=== PATIENT | male | born 1950 | race Caucasian/White ===

== ENCOUNTER 2023-11-03 02:26 | Inpatient (IN) | payer BC, SELFPAY ==
[2023-11-02 21:01] VITALS: BP 128/81
[2023-11-02 21:05] VITALS: BP 128/81; BMI 34.8
[2023-11-02 21:51] LABS: % Basophils 0.6 % (0-2); % Eosinophils 0.5 % (0-6); % Immature Granulocytes 0.7 % (0-0.5); % Lymphocytes 6.5 % (20.5-51.1); % Monocytes 9.3 % (1.7-9.3); % Neutrophils 82.4 % (42.2-75.2); Absolute Basophils 0.1 10^3/uL (0-0.2); Absolute Eosinophils 0.1 10^3/uL (0-0.7); Absolute Immature Granulocytes 0.1 10^3/uL (0-0.05); Absolute Lymphocytes 0.8 10^3/uL (1.2-3.4); Absolute Monocytes 1.2 10^3/uL (0.1-0.6); Absolute Neutrophils 10.2 10^3/uL (1.4-6.5); Hematocrit 38.9 % (39.0-52.0); Hemoglobin 14.1 g/dL (13.0-18.0); Mean Corp Hgb Conc. 36.2 g/dL (33.0-37.0); Mean Corpuscular Hgb 29.3 pg (27.0-31.0); Mean Corpuscular Volume 80.7 fL (80.0-94.0); Mean Platelet Volume 11.7 fL (7.4-10.4); Nucleated Red Blood Cells % 0 % (-); Platelet Count 220 10^3/uL (130-400); Red Blood Cell Count 4.82 10^6/uL (4.70-6.10); White Blood Cell Count 12.4 10^3/uL (4.8-10.8)
[2023-11-02 21:53] LABS: Urine Albumin Trace (Neg - Trace); Urine Bilirubin Negative (Negative); Urine Character Clear (Clear); Urine Color Yellow; Urine Glucose 1+ (Negative); Urine Ketone Negative (Negative); Urine Leukocyte Trace (Negative); Urine Nitrite Positive (Negative); Urine Occult Blood 3+ (Negative); Urine Urobilinogen Negative (Neg - 1+)
[2023-11-02 22:04] LABS: COVID-19 Antigen Negative (Negative)
[2023-11-02 22:13] LABS: ALT (SGPT) 32 U/L (0-50); AST (SGOT) 25 U/L (17-59); Albumin 3.9 g/dl (3.5-5.0); Alkaline Phosphatase 70 U/L (38-126); Blood Urea Nitrogen 16 mg/dl (9-20); Calcium 10.2 mg/dl (8.4-10.2); Carbon Dioxide 24 mmol/L (22-30); Chloride 106 mmol/L (98-107); Estimated Creatinine Clearance 97 ml/min; Glucose 214 mg/dl (70-99); Potassium 4.1 mmol/L (3.5-5.1); Sodium 137 mmol/L (135-145); Total Bilirubin 0.7 mg/dl (0.2-1.3); Total Protein 6.8 g/dl (6.3-8.2); eGFR > 60.00
--- NOTE | 2023-11-02 22:17 | ED.GENMED ---
History of Present Illness
General
Chief Complaint: Weakness
Source: patient, spouse and family
Exam Limitations: none
Time Seen by Provider: 11/02/23 21:03
Nursing documentation reviewed up to this point in time: agreed with
History of Present Illness
History of Present Illness:
72-year-old male diabetic recently started on insulin kidney stones, presents with fatigue trouble getting off, noted to be febrile here has had a cough and URI has had some back pain unsure if he had urinary frequency son's been sick with a similar
less severe illness
Past History
Past History
ED Past Medical History: Cancer (Prostate), NIDDM and Other (Multiple kidney stones, prostate cancer with radiation therapy; last radiation 2007, glaucoma, obstructive sleep apnea)
ED Past Surgical History: Urological (Prostatectomy)
Social History
Tobacco: Non-smoker
Alcohol: None
Drug: None
Personal:
Living: with family
Employment: Employed
Family History
Family History: Hypertension
Review of Systems
Review of Systems
All Other Systems: Not applicable
Constitutional: Reports fever and fatigue
EENT: Reports no symptoms
Respiratory: Reports cough and trouble breathing
Cardiac: Reports no symptoms
ABD/GI: Reports nausea
: Reports flank pain
Musculoskeletal: Reports muscle pain and muscle stiffness
Neurological: Reports weakness
Phy Exam
Physical Exam
Physical Exam:
Physical Exam
General: Moderately ill-appearing
Neck: Dry lips
Heart: s1/s2 regular rate and rhythm, no murmur. equal radial pulses.
Lungs: Rhonchi at the base
Abdomen: Nontender
Neuro: alert and oriented. no focal neurological deficits
Skin: no rash
Psychiatric: cooperative
Extremities: Well-healed surgical scar on the left
Course
Orders/Labs/Results
Orders:
Orders
11/02/23 21:02
Electrocardiogram (*1) Urgent
Reason for Study: Fatigue / Weakness
11/02/23 21:04
EKG- Treatment ONCE
11/02/23 21:17
CMP [Comprehensive Metabolic Panel] Urgent
Complete Blood Count/With Diff Urgent
11/02/23 21:41
COVID-19 Antigen Urgent
Source: Nasal Swab
Urinalysis Reflex To Culture Urgent
Date Specimen was Collected: 11/02/23
Time Specimen was Collected: 21:40
Urine Microscopic Reflex Cult Urgent
Urine Culture Urgent
DANIEL Source: U
Specimen Description:
Date Specimen was Collected: 11/02/23
Time Specimen was Collected: 21:40
11/02/23 22:16
CT Abd/pel Without Iv Or Oral Urgent
Comment:
Reason For Exam: uti fever stones
0.9% Sodium Chloride 1000 ml [Nss] 1,000 ml IV BOLUS
Acetaminophen [Tylenol] 650 mg PO NOW STA
CR Chest - 2 Views Urgent
Comment:
Reason For Exam: fever
11/02/23 23:29
Blood Culture Urgent
DANIEL Source: Blood/Venous
Specimen Description:
CefTRIAXone [Rocephin] 1,000 mg IV NOW STA
11/02/23 23:46
Ibuprofen [Motrin] 600 mg PO NOW STA
Abnormal Lab Results
11/02/23 11/02/23
21:17 21:41
WBC 12.4 H 10^3/uL
(4.8-10.8)
Hct 38.9 L %
(39.0-52.0)
MPV 11.7 H fL
(7.4-10.4)
Abs Immat Gran (auto) 0.1 H 10^3/uL
(0-0.05)
Absolute Neuts (auto) 10.2 H 10^3/uL
(1.4-6.5)
Absolute Lymphs (auto) 0.8 L 10^3/uL
(1.2-3.4)
Absolute Monos (auto) 1.2 H 10^3/uL
(0.1-0.6)
Immature Gran % 0.7 H %
(0-0.5)
Neutrophils % 82.4 H %
(42.2-75.2)
Lymphocytes % 6.5 L %
(20.5-51.1)
Glucose 214 H mg/dl
(70-99)
Ur Occult Blood Reflex 3+ A
(Negative)
Urine Nitrite (Reflex) Positive A
(Negative)
Leukocyte Esterase Rfl Trace A
(Negative)
Urine RBC 7-10 A /HPF
(0-2)
Urine Glucose 1+ A
(Negative)
11/02/23 21:17
11/02/23 21:17
Vital Signs
Initial and Last Documented VS:
Initial Vital Signs
BP
128/81
11/02/23 21:01
Last Documented Vital Signs
Temp Pulse Resp BP Pulse Ox
100.9 F H 90 20 128/81 93
11/02/23 23:37 11/02/23 22:45 11/02/23 22:45 11/02/23 21:05 11/02/23 22:45
MDM/Problems Addressed
Differential Diagnosis Includes:
Viral syndrome COVID pneumonia UTI sepsis ureteral stone
MDM/Problems Addressed:
Fever fatigue
Acute Exacerbation and/or Progression of Chronic Illness: DM
*Radiology
Radiology exam reviewed: preliminary read by ED provider
*Pulse Oximetry
Patient hypoxic: no
*Sales And Marketing Manager Interpretation
Rate: normal
Interpretation: normal
Heart Rate: 100
Rhythm: sinus
*Critical Care Note
Total Time (30-74mins, 75-104mins- exclusive of procedures): 15
Update Note
Update Note:
update
labs noted
ua noted
Uc pending
BC ordered
cxr noted
CT report noted
fever trending up
will admit
concern for bacteremia
ED Attending Note
-
Portions of this chart may have been created with voice recognition software.� Occasional wrong word or��sound alike� substitutions may have occurred due to the inherent limitations of voice recognition software.
Discharge Plan
Departure
Patient Disposition: Admit
Date of Disposition: 11/02/23
Time of Disposition: 23:56
Admit to: Telemetry
Presentation/result/management discussed w/ accepting MD/DO: Hospitalist
Patient with high blood pressure during this ER visit?: No
Condition: Fair
Covid-19: Negative COVID-19
Discharge Problem:
Sepsis
Prescriptions:
No Action
tamsulosin [Flomax] 0.4 MG capsule
0.4 mg PO HS Qty: 7 0RF
levofloxacin 250 MG tablet
250 mg PO DAILY Qty: 6 0RF
glyburide 2.5 MG tablet
2.5 mg PO BID@0800,1700 0RF
hydrocodone-acetaminophen [Vicodin] 1 EACH tablet
1 ea PO Q8HPRN PRN (Reason: pain) Qty: 20 0RF
hydrocodone-acetaminophen 1 TABLET tablet
1 tab PO Q4HPRN PRN (Reason: pain) Qty: 10 0RF
sulfamethoxazole-trimethoprim [Bactrim DS] 800-160 mg tablet
1 tab PO BID 5 Days Qty: 10 0RF
Referrals:
UNKNOWN - PT DOES,NOT KNOW [Family Provider] -
Interventions
Interventions:
*Risk Screen - Suicide Last Done: 11/02/23 21:05
*General Assessment Last Done: 11/02/23 21:05
*Neglect/Abuse Screening Last Done: 11/02/23 21:05
ED- Fall Risk Assessment Last Done: 11/02/23 21:05
*ED COVID-19 Vaccine History Last Done: 11/02/23 21:05
ED- Cardiac Assessment Last Done: 11/02/23 21:52
ED- Neurological Assessment Last Done: 11/02/23 21:52
ED- Pulmonary Assessment Last Done: 11/02/23 21:52
Discharge Date and Time
Print Language: VIETNAMESE
[2023-11-02] MEDS: TYLENOL 650 MG PO (22:19)
[2023-11-02] MEDS: NSS 1000 IV (22:21)
[2023-11-02 23:28] VITALS: BP 122/77
[2023-11-02] MEDS: MOTRIN 600 MG PO (23:53)
[2023-11-03] VITALS (9 sets, daily range): BP systolic 102–146; BP diastolic 54–83; PULSE 79; O2SAT 93; BMI 34.4
[2023-11-03] MEDS: ROCEPHIN 1000 MG IV ×2 (00:05→21:51)
--- NOTE | 2023-11-03 02:09 | HPS.HSE ---
Family Physician
-
Family Physician: NOT KNOW UNKNOWN - PT DOES
Chief Complaint
-
Weakness/Fall, Coughing x 3 weeks
History of Present Illness
72yo M with PMH NAEEM (not treated), DM on insulin, Prostate Ca s/p Prostatectomy/Radiation (2007), Nephrolithiasis, Right Hip OA, Left Hip DJD s/p TKR (~1yr ago), Glaucoma, Anxiety presents to ER wtih complaint of weakness s/p fall. Pt states today
he was at home on his chair. ATtempted to get up and go to the bathroom but was so weak he lowered himself to the ground. Denies any traumatic injuries or LOC. Reports productive cough x 3 weeks. Does not require oxygen at home or use cpap for NAEEM.
Denies dysuria, but does endorse chronic incontinence for which he uses diapers. Denies any history of left knee infections or recent abx. Denies fever (despite being febrile in ER), dizziness/LH, pre-syncope, CP, palps, wheezing, abd pain, n/v/d/c,
dysuria, calf or leg pain.
ER course: Pt presents Tmax 100.4, HR 101, RR 18-31, Sat 93% RA. COVID (-). CXR with possible LLL pneumonia. WBC 12.4K. BUN/Cr 16/0.8, BG 214. S/P 1gm IV rocephin, Tylenol 650mg, Motrin 600mg PO, and 1LNS in ER. Azithromycin added.
Medical History
Past Medical History
Past Medical History: Reports Other
Additional Past Medical History:
NAEEM (not treated), DM on insulin, Prostate Ca s/p Prostatectomy/Radiation (2007), Nephrolithiasis, Right Hip OA, Left Hip DJD s/p TKR (~1yr ago), Glaucoma, Anxiety
Past Surgical History: Reports Other
Additional Past Surgical History:
Right TKR, Prostatectomy
Social History
Tobacco: Non-smoker
Alcohol: None
Drug: None
Personal:
Living: With Family
Family History
Family History: Hypertension
Allergies / Home Medications
Allergies reflects when Allergies were last updated in [facility].
Home Medications with original date entered in [facility]
Allergy/Medication List:
Allergies
Allergy/AdvReac Type Severity Reaction Status Date / Time
No Known Allergies Allergy Verified 11/02/23 21:05
Home Medications
Novolog U-100 Insulin aspart 10 units SC TIDWMEAL 11/03/23
insulin degludec 100 unit/mL (3 mL) subcutaneous pen (Tresiba FlexTouch U-100 insulin) 55 unit SC HS 11/03/23
Review of Systems
-
A 12 point ROS was completed and negative except as noted: Yes
Physical Exam
Vital Signs
Vital Signs
Temp Pulse Resp BP Pulse Ox
99.8 F 85 20 139/83 95
11/03/23 01:34 11/03/23 01:30 11/03/23 01:30 11/03/23 00:09 11/03/23 00:45
Physical Exam
General: Well Developed, Well Nourished and No Apparent Distress
HEENT: NormoCephalic, Moist mucous membranes and Atraumatic
Respiratory: Other (Coaresness left base. no w/r/r. )
Cardiac: S1/S2 and Regular Rhythm; No Murmur or Rub
GI: Soft, Non Tender, Non Distended, Normal Bowel Sounds and Other (obese. ); No Organomegaly
Rectal: Deferred by Provider
Genito-urinary: No No costovertebral tender or Vázquez
Musculoskeletal: No Clubbing, No Cyanosis, No Edema and Other (MSK 4/5 throughout. )
Skin: No Rash
Neuro: Awake, Alert, Oriented, AO x 3 and Nonfocal/grossly intact
Psych: Calm
Laboratory Results
-
11/02/23 21:17
11/02/23 21:17
Laboratory Results
Total Bilirubin 0.7 mg/dl (0.2-1.3) 11/02/23 21:17
AST 25 U/L (17-59) 11/02/23 21:17
ALT 32 U/L (0-50) 11/02/23 21:17
Alkaline Phosphatase 70 U/L (38-126) 11/02/23 21:17
Data Reviewed
-
Diagnostic Radiology: Image Personally Visualized and interpreted
Lab Data: Labs Reviewed by me
Old Records: Reviewed
Impression/Plan
-
Sepsis 2/2 PNA
- +4/4 SIRS (tachycardia, Tachypnea, Tmax 100.4, WBC 12.4K). LA ordered and pending
- S/P 1L NS Bolus in ER. Continue NS per sepsis protocol
- UA without concern for infection
- BC x 2 ordered. Follow up Sputum Culture
- CXR with possible LLL pneumonia, follow official read. Pt endorses 3 weeks of cough with productive mucous
- COVID (-)
- Continue rocephin/azithromycin
- Continue mucinex and IS with prn albuterol nebs
Hyperglycemia/DM2
- BG 214 on admission. Check A1C
- Continue home tresiba and novolog bolus regimen. SSI/accuchecks.
- Hypoglycemia protocol.
Hx Urinary Incontinence
- Pt reports no longer being on flomax
- UA without evidence of infection.
NAEEM - Intolerant to cpap.
Anxiety / Meds need reconciliation - Pt was able to confirm insulin does but does not know the rest of his meds. Believes an anxiety med is the last one. Will need confirmation with in AM.
Diet: Diabetic Diet
DVT Ppx: Lovenox
Code Status: Full Code
[2023-11-03] MEDS: NSS 1000 IV ×2 (04:15→15:25)
[2023-11-03] MEDS: ZITHROMAX INFUSION 250 IV (04:16)
--- NOTE | 2023-11-03 04:35 | PTCARENOTE ---
Patient received from ED via stretcher. Patient pulled over onto the bed. Received on 2L O2 NC. AAOx3, VSS. Temp of 99.5 orally, O2 sat 97% on 2L NC. Patient oriented to the room. Educated on prescribed medications. Call pickett is within reach.
[2023-11-03 05:56] LABS: % Basophils 0.6 % (0-2); % Eosinophils 0.6 % (0-6); % Immature Granulocytes 0.7 % (0-0.5); % Monocytes 5.9 % (1.7-9.3); % Neutrophils 83.2 % (42.2-75.2); Absolute Basophils 0.1 10^3/uL (0-0.2); Absolute Eosinophils 0.1 10^3/uL (0-0.7); Absolute Immature Granulocytes 0.1 10^3/uL (0-0.05); Absolute Lymphocytes 0.8 10^3/uL (1.2-3.4); Absolute Monocytes 0.5 10^3/uL (0.1-0.6); Absolute Neutrophils 7.3 10^3/uL (1.4-6.5); Hematocrit 37.3 % (39.0-52.0); Mean Corp Hgb Conc. 34.9 g/dL (33.0-37.0); Mean Corpuscular Hgb 29.7 pg (27.0-31.0); Mean Corpuscular Volume 85.2 fL (80.0-94.0); Mean Platelet Volume 11.2 fL (7.4-10.4); Nucleated Red Blood Cells % 0 % (-); Platelet Count 176 10^3/uL (130-400); Red Blood Cell Count 4.38 10^6/uL (4.70-6.10); Red Cell Dist. Width 13.1 % (11.5-14.5); White Blood Cell Count 8.8 10^3/uL (4.8-10.8)
[2023-11-03 06:10] LABS: Lactic Acid 1.6 mmol/L (0.7-2.0)
[2023-11-03 06:18] LABS: Blood Urea Nitrogen 13 mg/dl (9-20); Calcium 9.6 mg/dl (8.4-10.2); Carbon Dioxide 25 mmol/L (22-30); Chloride 108 mmol/L (98-107); Estimated Creatinine Clearance 97 ml/min; Glucose 159 mg/dl (70-99); Potassium 3.6 mmol/L (3.5-5.1); Sodium 139 mmol/L (135-145); eGFR > 60.00
[2023-11-03 08:23] LABS: Glucose - Point of Care 172 mg/dl (70-99)
[2023-11-03] MEDS: MUCINEX 600 MG PO ×2 (09:20→20:08)
[2023-11-03] MEDS: NOVOLOG FLEXPEN-LOW RESISTANCE 1 UNITS SC ×3 (09:23→17:04)
[2023-11-03] MEDS: TYLENOL 650 MG PO ×3 (09:28→21:58)
--- NOTE | 2023-11-03 09:31 | PTCARENOTE ---
Patient with chills. Temperature at this time 101.0 orally. Given tylenol.
[2023-11-03] MEDS: NovoLIN R Flexpen 10 UNITS SC ×3 (09:39→16:59)
--- NOTE | 2023-11-03 10:36 | W.PN.HOSP.TC ---
Today's Communication/Plan
-
rocephin/zithromax/nebs
supportive care
Assessment / Plan
Assessment / Plan
pt is a 72 year old male
Sepsis (POA) likely due to LLL PNA--cont IVF--cont rocephin/oral zithromax--await cultures- COVID (-) - Continue mucinex and IS with prn albuterol nebs
Type 2 DM with - BG 214 on admission. Check A1C- Continue home tresiba and novolog bolus regimen. SSI/accuchecks- Hypoglycemia protocol.
Hx Urinary Incontinence- Pt reports no longer being on flomax- UA without evidence of infection.
NAEEM - Intolerant to cpap.
Anxiety/Meds need reconciliation - Pt was able to confirm insulin does but does not know the rest of his meds. Believes an anxiety med is the last one. Will need confirmation with in AM.
DVT Ppx: Lovenox
Code Status: Full Code
Anticipated Discharge: > 48 hours
Subjective/Interval History
-
Date of Service: November 03, 2023
pt c/o chills and now with fever
Objective Data
-
Labs:
Laboratory Results
11/03/23
05:18
WBC 8.8
Hgb 13.0
Hct 37.3 L
Plt Count 176
Sodium 139
Potassium 3.6
Chloride 108 H
Carbon Dioxide 25
BUN 13
Creatinine 0.8
Glucose 159 H
Calcium 9.6
Vital Signs:
11/03/23
10:36
Temp 102
Vital Signs
Temp Pulse Resp BP Pulse Ox
101 F H 87 20 146/75 94
11/03/23 09:29 11/03/23 08:13 11/03/23 08:13 11/03/23 08:13 11/03/23 08:13
I&O
11/02/23 11/03/23 11/04/23
06:59 06:59 06:59
Intake Total 390 / 390
Balance 390 / 390
Review of Systems
-
All other systems: Reviewed and negative
Physical Exam
-
General: Well Developed, Well Nourished and No Apparent Distress
HEENT: Normocephalic and Atraumatic
Respiratory: Clear to Auscultation; Negative Wheezes or Rhonchi
Cardiac: Regular Rhythm and S1/S2; Negative Murmur
GI: Soft, Nontender, Nondistended and Normal Bowel Sounds
Musculoskeletal: No Clubbing, No Cyanosis and No Edema
Skin: Warm
Neuro: Awake and Alert
Psych: Calm
[2023-11-03] MEDS: MOTRIN 400 MG PO ×2 (10:47→16:32)
--- NOTE | 2023-11-03 11:22 | PTCARENOTE ---
Patient's temp 102 an hour after Tylenol. MD notified. Motrin given and ice packs provided under arms and to the back of neck.
[2023-11-03 12:14] LABS: Glucose - Point of Care 164 mg/dl (70-99)
--- NOTE | 2023-11-03 12:14 | PTCARENOTE ---
Braider Setter made aware of platelet count of 9,000 as well.
--- NOTE | 2023-11-03 12:20 | PTCARENOTE ---
Preliminary Blood Cultures - gram negative bacilli in anaeribic bottles - Hospitalist notified.
[2023-11-03 15:41] LABS: Glycohemoglobin (HgbA1c) 11.5 % (4.0-5.6)
[2023-11-03 16:43] LABS: Glucose - Point of Care 179 mg/dl (70-99)
[2023-11-03] MEDS: LOVENOX 40 MG SC (17:04)
[2023-11-03] MEDS: LEXAPRO 10 MG PO (20:08)
[2023-11-03 21:08] LABS: Glucose - Point of Care 195 mg/dl (70-99)
[2023-11-03] MEDS: LANTUS 0.55 UNITS SC (21:51)
[2023-11-03] MEDS: MELATONIN 5 MG PO (21:51)
[2023-11-03] MEDS: STERILE WATER FOR INJECTION 10 ML IV (21:51)
[2023-11-03 23:03] LABS: Glucose - Point of Care 171 mg/dl (70-99)
[2023-11-04 03:05] VITALS: BP 158/79
[2023-11-04] MEDS: TYLENOL 650 MG PO ×4 (03:12→19:42)
[2023-11-04] MEDS: NSS 1000 IV (04:04)
[2023-11-04 07:18] LABS: Glucose - Point of Care 122 mg/dl (70-99)
[2023-11-04 07:30] VITALS: BP 132/69
[2023-11-04] MEDS: MUCINEX 600 MG PO ×2 (08:15→19:42)
[2023-11-04] MEDS: ZITHROMAX 500 MG PO (08:15)
[2023-11-04] MEDS: NOVOLOG FLEXPEN-LOW RESISTANCE SC (08:24)
[2023-11-04] MEDS: NovoLIN R Flexpen 10 UNITS SC ×3 (08:26→17:21)
[2023-11-04 09:06] LABS: Hematocrit 35.8 % (39.0-52.0); Hemoglobin 12.5 g/dL (13.0-18.0); Mean Corp Hgb Conc. 34.9 g/dL (33.0-37.0); Mean Corpuscular Hgb 29.3 pg (27.0-31.0); Mean Platelet Volume 12.2 fL (7.4-10.4); Platelet Count 154 10^3/uL (130-400); Red Blood Cell Count 4.26 10^6/uL (4.70-6.10); White Blood Cell Count 7.5 10^3/uL (4.8-10.8)
[2023-11-04 09:11] LABS: ALT (SGPT) 35 U/L (0-50); AST (SGOT) 35 U/L (17-59); Albumin 3.1 g/dl (3.5-5.0); Alkaline Phosphatase 63 U/L (38-126); Blood Urea Nitrogen 12 mg/dl (9-20); Carbon Dioxide 21 mmol/L (22-30); Chloride 107 mmol/L (98-107); Estimated Creatinine Clearance > 125 ml/min; Glucose 133 mg/dl (70-99); Magnesium 1.7 mg/dl (1.6-2.3); Potassium 3.7 mmol/L (3.5-5.1); Sodium 134 mmol/L (135-145); Total Bilirubin 0.7 mg/dl (0.2-1.3); Total Protein 5.8 g/dl (6.3-8.2); eGFR > 60.00
--- NOTE | 2023-11-04 09:37 | W.PN.HOSP.TC ---
Addendum entered and electronically signed by Pastora Ha MD 11/04/23 09:54:
HGB A1C is 11.5--will consult DM SIMRAN in AM for assistance
Original Note:
Today's Communication/Plan
-
repeat CXR
cont abx
follow cultures
Assessment / Plan
Assessment / Plan
pt is a 72 year old male
Sepsis (POA)--due to LLL PNA vs UTI--blood culture positive for Klebsiella pneumonia--cont IVF--cont rocephin/oral zithromax--await urine cultures, repeat blood culture pending--- COVID (-) - Continue mucinex and IS with prn albuterol nebs--recheck
2 view CXR today
Type 2 DM with - BG 214 on admission. Check A1C- Continue home tresiba and novolog bolus regimen. SSI/accuchecks
Hx Urinary Incontinence- Pt reports no longer being on flomax--await urine culture
NAEEM - Intolerant to cpap.
Anxiety-- cont lexapro
DVT Ppx: Lovenox
Code Status: Full Code
Anticipated Discharge: > 48 hours
Subjective/Interval History
-
Date of Service: November 04, 2023
pt feeling a bit better
Objective Data
-
Labs:
Laboratory Results
11/04/23
05:36
WBC 7.5
Hgb 12.5 L
Hct 35.8 L
Plt Count 154
Sodium 134 L
Potassium 3.7
Chloride 107
Carbon Dioxide 21 L
BUN 12
Creatinine 0.6 L
Glucose 133 H
Calcium 9.0
Total Bilirubin 0.7
AST 35
ALT 35
Alkaline Phosphatase 63
Vital Signs:
max temp for 24 hours
11/03/23
10:36
Temp 102 F H
Vital Signs
Temp Pulse Resp BP Pulse Ox
100.4 F H 93 20 132/69 91
11/04/23 07:30 11/04/23 07:30 11/04/23 07:30 11/04/23 07:30 11/04/23 07:30
I&O
11/03/23 11/04/23 11/05/23
06:59 06:59 06:59
Intake Total 390 / 390 3000 / 3000
Output Total 430 / 430
Balance 390 / 390 2570 / 2570
Review of Systems
-
All other systems: Reviewed and negative
Physical Exam
-
General: Well Developed, Well Nourished and No Apparent Distress
HEENT: Normocephalic and Atraumatic
Respiratory: Clear to Auscultation; Negative Wheezes or Rhonchi
Cardiac: Regular Rhythm and S1/S2; Negative Murmur
GI: Soft, Nontender, Nondistended and Normal Bowel Sounds
Musculoskeletal: No Clubbing, No Cyanosis and No Edema
Neuro: Awake and Alert
Psych: Calm
[2023-11-04 11:24] VITALS: BP 123/72
[2023-11-04 11:52] LABS: Glucose - Point of Care 192 mg/dl (70-99)
[2023-11-04] MEDS: NOVOLOG FLEXPEN-LOW RESISTANCE 1 UNITS SC ×2 (12:38→17:21)
[2023-11-04 15:30] VITALS: BP 142/78
[2023-11-04 16:39] LABS: Glucose - Point of Care 170 mg/dl (70-99)
[2023-11-04] MEDS: LOVENOX 40 MG SC (17:43)
[2023-11-04 19:33] VITALS: BP 128/61
[2023-11-04 21:16] LABS: Glucose - Point of Care 199 mg/dl (70-99)
[2023-11-04] MEDS: MELATONIN 5 MG PO (22:12)
[2023-11-04] MEDS: LEXAPRO 10 MG PO (22:13)
[2023-11-04] MEDS: LANTUS 0.55 UNITS SC (22:13)
[2023-11-04] MEDS: STERILE WATER FOR INJECTION 10 ML IV (22:13)
[2023-11-04] MEDS: ROCEPHIN 1000 MG IV (22:13)
[2023-11-04 23:27] VITALS: BP 118/59
[2023-11-05] VITALS (7 sets, daily range): BP systolic 112–136; BP diastolic 59–78; PULSE 78
[2023-11-05 07:27] LABS: Hematocrit 35.2 % (39.0-52.0); Hemoglobin 12.6 g/dL (13.0-18.0); Mean Corp Hgb Conc. 35.8 g/dL (33.0-37.0); Mean Corpuscular Hgb 29.2 pg (27.0-31.0); Mean Corpuscular Volume 81.7 fL (80.0-94.0); Mean Platelet Volume 11.6 fL (7.4-10.4); Platelet Count 168 10^3/uL (130-400); Red Blood Cell Count 4.31 10^6/uL (4.70-6.10); Red Cell Dist. Width 12.9 % (11.5-14.5); White Blood Cell Count 5.8 10^3/uL (4.8-10.8)
[2023-11-05 07:52] LABS: Glucose - Point of Care 108 mg/dl (70-99)
[2023-11-05 07:53] LABS: NT-proBNP 576 pg/ml
[2023-11-05] MEDS: NOVOLOG FLEXPEN-LOW RESISTANCE SC ×2 (07:55→11:44)
[2023-11-05] MEDS: ZITHROMAX 500 MG PO (08:03)
[2023-11-05] MEDS: MUCINEX 600 MG PO ×2 (08:03→19:58)
[2023-11-05 08:05] LABS: Blood Urea Nitrogen 13 mg/dl (9-20); Calcium 9.4 mg/dl (8.4-10.2); Carbon Dioxide 26 mmol/L (22-30); Chloride 106 mmol/L (98-107); Estimated Creatinine Clearance > 125 ml/min; Glucose 115 mg/dl (70-99); Magnesium 1.9 mg/dl (1.6-2.3); Potassium 3.7 mmol/L (3.5-5.1); Sodium 138 mmol/L (135-145); eGFR > 60.00
[2023-11-05] MEDS: NovoLIN R Flexpen 10 UNITS SC (08:29)
--- NOTE | 2023-11-05 08:42 | PN.DE.MGMTRT ---
Insulin Management
- -
11/05/2023: Diabetes Management Consult
72 year old male with PMH: NAEEM, Prostate Ca s/p Prostatectomy/Radiation (2007), Nephrolithiasis, Right Hip OA, Left Hip DJD s/p TKR (~1yr ago), Glaucoma, urinary incontinence, Anxiety and T2DM, presented to the ED on 11/01 with c/o weakness and fall.
Noted for Sepsis due bacteremia, LLL PNA and UTI.
Glucose on admission was 214, A1C 11.5%, Cr 0.6, eGFR>60. Was taking Tresiba 55 units @ HS and NovoLog 10 units AC.
He was started on Lantus 55 units @ HS and Regular insulin [address] Martinez on admission and has remained on the same regimen throughout the weekend.
Pt awake, A/O x3, sitting up in chair, offers no complaints, able to discuss diabetes mgt. States he has an upcoming 1st time visit with Endocrine- Dr. Augustin next month. He reports trying several oral meds like Metformin but he did not tolerate
them.
Reports that his takes care of all his diabetes needs, attempted to call pt's at cell number listed in chart and was unable to reach her.
11/03 premeal glucose range 122 to 192, was 199 @ HS, fasting 115 (V), 108 POC this AM.
Will STOP SQ Regular insulin. Start NovoLog 8 units AC. Cont Lantus 55 units @ HS with low corrective insulin
Will closely monitor glucose and further adjust insulin if necessary.
Pt reports he has a glucose monitor but does not monitor often. Encouraged pt to get script for CGM and discuss GLP-1 with endo at this 1st visit
Will attempt calling the again tomorrow.
Diabetes History
- -
Type of Diabetes: 2 requiring insulin
Pre-Admission Diabetes Regimen
11/04/23 11/05/23
05:36 06:50
Creatinine 0.6 L 0.6 L
Lab Results
Hemoglobin A1c Cancelled 11/03/23 06:00
Insulin Pump Settings
IP Diabetes Regimen
11/04/23 11/04/23 11/04/23
05:36 11:50 16:35
Glucose 133 H
POC Glucose 192 H 170 H
11/04/23 11/05/23 11/05/23
21:15 06:50 07:51
Glucose 115 H
POC Glucose 199 H 108 H
Patient Education
--- NOTE | 2023-11-05 10:15 | W.PN.HOSP.TC ---
Addendum entered and electronically signed by Deepak Vora MD 11/05/23 20:08:
I saw and evaluated the patient. I reviewed the resident�s note and agree with findings and plan as documented in the resident�s note.
Original Note:
Documented by User: Edie Nunez MD, Resident 11/05/23 15:53
Today's Communication/Plan
-
Blood and urine cultures (+) for klebsiella. Continue patient on Rocephin.
Assessment / Plan
Assessment / Plan
pt is a 72 year old male
Sepsis (POA)--due to LLL PNA vs UTI--blood and urine culture positive for Klebsiella pneumonia--cont IVF--cont rocephin- repeat blood culture pending--- COVID (-) - Continue mucinex and IS with prn albuterol nebs-- Repeat chest x-ray unchanged.
likely atelectasis per radiology -- Cultures with klebsiella makes urinary source more likely
Type 2 DM with - BG 214 on admission -- HgA1C 11.5 -- Diabetic SWITCHBOARD WIRE WORKER HELPER consulted and spoke to patient - Novolog 8 units AC, continue lantus 55 units per Diabetic nurse -- SSI/accuchecks -- Pt educated on diabetes and relation to UTIs
Hx Urinary Incontinence- Pt reports no longer being on flomax--urine culture (+) klebsiella. Continue on IV rocephin.
NAEEM - Intolerant to cpap.
Anxiety-- cont lexapro
DVT Ppx: Lovenox
Code Status: Full Code
Anticipated Discharge: 24 - 48 hours
Subjective/Interval History
-
Date of Service: November 05, 2023
Objective Data
-
Labs:
Laboratory Results
11/05/23
06:50
WBC 5.8
Hgb 12.6 L
Hct 35.2 L
Plt Count 168
Sodium 138
Potassium 3.7
Chloride 106
Carbon Dioxide 26
BUN 13
Creatinine 0.6 L
Glucose 115 H
Calcium 9.4
Vital Signs:
Vital Signs
Temp Pulse Resp BP Pulse Ox
99.8 F 79 20 136/68 94
11/05/23 07:25 11/05/23 07:25 11/05/23 07:25 11/05/23 07:25 11/05/23 08:00
I&O
11/04/23 11/05/23 11/06/23
06:59 06:59 06:59
Intake Total 3000 / 3000 840 / 840
Output Total 430 / 430 575 / 575
Balance 2570 / 2570 265 / 265
Review of Systems
-
History Source: Patient
EENT: Reports No Symptoms Reported
Respiratory: Reports Cough
Cardiac: Reports No Symptoms
Abdomen/GI: Reports No Symptoms
Genitourinary: Reports No Symptoms
Neuro: Reports No Symptoms
Physical Exam
-
General: Well Developed, Well Nourished and No Apparent Distress
Respiratory: Crackles
Cardiac: Regular Rhythm and S1/S2
GI: Soft, Nontender and Nondistended
Musculoskeletal: No Edema
Neuro: AO x 3
Psych: Calm

Documented by User: Deepak Vora MD 11/05/23 20:07
Assessment / Plan
Assessment / Plan
pt is a 72 year old male
Sepsis (POA) with kleb pneumoniae bacteremia- suspected source ----blood and urine culture positive for Klebsiella pneumoniae--cont IVF--cont rocephin- repeat blood culture pending--- COVID (-) - Continue mucinex and IS with prn albuterol nebs--
Repeat chest x-ray unchanged. likely atelectasis per radiology -- Cultures with klebsiella makes urinary source more likely
CT imagin of A/P no renal stones or obstructive uropathy.
Pt has hx of urinary incontinence since post prostrate sx - check bladder scans for any overflow incontinence.
Type 2 DM with - BG 214 on admission -- HgA1C 11.5 -- Diabetic SWITCHBOARD WIRE WORKER HELPER consulted and spoke to patient - Novolog 8 units AC, continue lantus 55 units per Diabetic nurse -- SSI/accuchecks -- Pt educated on diabetes and relation to UTIs
Hx Urinary Incontinence- Pt reports no longer being on flomax--urine culture (+) klebsiella. Continue on IV rocephin.
NAEEM - Intolerant to cpap.
Anxiety-- cont lexapro
DVT Ppx: Lovenox
Code Status: Full Code
Total time of care 52 min
--- NOTE | 2023-11-05 10:18 | CM ---
Cm met with pt bedside
He resides with his spouse in a [place] with 6+5 CARLOS through front, 13 through rear
Pt notes he is typically independent with his ADLs with use a SPC, he wears adult diapers
Pt has a WW for use if needed
Spouse works customer business manager at [employer]
Pt notes his BGM at home is in working condition and he gets his DM supplies through [facility]
PCP- Becky Moscoso
Rx- [facility]
PT/OT following with [facility] recommendations
Referral made to [facility] per pt request
Discharge Disposition- home with [facility]
--- NOTE | 2023-11-05 10:49 | VNURNOTE ---
Attempted to meet with patient to discuss [facility] services. He was sound asleep. Will try later.
[2023-11-05 11:42] LABS: Glucose - Point of Care 115 mg/dl (70-99)
--- NOTE | 2023-11-05 12:07 | VNURNOTE ---
Home Health Liaison met with patient at bedside to discuss [facility] nurse/therapy, visits, schedule and homebound status. Patient is agreeable and understands that visits at home will be 1-3x per week to assess and teach medical management. [facility]
brochure provided with contact information. Patient is aware that [facility] will contact them for start of care within a few days after discharge from . [facility] referral completed in [facility].
[2023-11-05] MEDS: NOVOLOG FLEXPEN 8 UNITS SC ×2 (12:41→17:09)
[2023-11-05 16:44] LABS: Glucose - Point of Care 205 mg/dl (70-99)
[2023-11-05] MEDS: NOVOLOG FLEXPEN-LOW RESISTANCE 2 UNITS SC (17:09)
[2023-11-05] MEDS: LOVENOX 40 MG SC (17:10)
[2023-11-05] MEDS: LEXAPRO 10 MG PO (20:31)
[2023-11-05 21:16] LABS: Glucose - Point of Care 127 mg/dl (70-99)
[2023-11-05] MEDS: LANTUS 0.55 UNITS SC (21:59)
[2023-11-05] MEDS: STERILE WATER FOR INJECTION 10 ML IV (22:00)
[2023-11-05] MEDS: MELATONIN 5 MG PO (22:00)
[2023-11-05] MEDS: ROCEPHIN 1000 MG IV (22:00)
[2023-11-06 03:32] VITALS: BP 116/66
[2023-11-06 07:58] LABS: Glucose - Point of Care 115 mg/dl (70-99)
[2023-11-06 08:00] VITALS: BP 125/82
--- NOTE | 2023-11-06 08:14 | W.PN.HOSP.TC ---
Today's Communication/Plan
-
Discharge on oral Augmentin.
Assessment / Plan
Assessment / Plan
pt is a 72 year old male
Sepsis (POA) with kleb pneumoniae bacteremia- suspected source ---blood and urine culture positive for Klebsiella pneumoniae--cont IVF--cont rocephin- repeat blood culture pending--- COVID (-) - Continue mucinex and IS with prn albuterol nebs--
Repeat chest x-ray unchanged. likely atelectasis per radiology -- Cultures with klebsiella makes urinary source more likely -- CT imaging of A/P no renal stones or obstructive uropathy -- Pt has hx of urinary incontinence since post prostrate sx -
bladder scan normal -- Klebsiella sensitive to augmentin. Discharge on PO augmentin
Type 2 DM with - BG 214 on admission -- HgA1C 11.5 -- Diabetic CORK TIPPER consulted and spoke to patient - Novolog 8 units AC, continue lantus 55 units per Diabetic nurse -- SSI/accuchecks -- Pt educated on diabetes and relation to UTIs
Hx Urinary Incontinence- Pt reports no longer being on flomax--urine culture (+) klebsiella. Switch to oral Augmentin and discharge
NAEEM - Intolerant to cpap.
Anxiety-- cont lexapro
DVT Ppx: Lovenox
Code Status: Full Code
Total time of care 52 min
Anticipated Discharge: Today
Subjective/Interval History
-
Date of Service: November 06, 2023
Objective Data
-
Labs:
Laboratory Results
11/06/23
06:00
WBC Pending
Hgb Pending
Hct Pending
Plt Count Pending
Sodium Pending
Potassium Pending
Chloride Pending
Carbon Dioxide Pending
BUN Pending
Creatinine Pending
Glucose Pending
Calcium Pending
Vital Signs:
Vital Signs
Temp Pulse Resp BP Pulse Ox
98.1 F 77 18 125/82 97
11/06/23 08:00 11/06/23 08:00 11/06/23 08:00 11/06/23 08:00 11/06/23 08:00
I&O
11/05/23 11/06/23 11/07/23
06:59 06:59 06:59
Intake Total 840 / 840 720 / 720
Output Total 575 / 575 600 / 600
Balance 265 / 265 120 / 120
Review of Systems
-
History Source: Patient
EENT: Reports No Symptoms Reported
Respiratory: Reports No Symptoms
Cardiac: Reports No Symptoms
Abdomen/GI: Reports No Symptoms
Genitourinary: Reports No Symptoms
Neuro: Reports No Symptoms
Physical Exam
-
General: Well Developed, Well Nourished and No Apparent Distress
Respiratory: Clear to Auscultation
Cardiac: Regular Rhythm and S1/S2
GI: Soft, Nontender and Nondistended
Musculoskeletal: No Edema
Neuro: AO x 3
Psych: Calm
[2023-11-06] MEDS: NOVOLOG FLEXPEN-LOW RESISTANCE SC (08:15)
[2023-11-06] MEDS: MUCINEX 600 MG PO (08:36)
[2023-11-06] MEDS: NOVOLOG FLEXPEN 8 UNITS SC ×2 (08:36→12:12)
--- NOTE | 2023-11-06 08:42 | PN.DE.MGMTRT ---
Insulin Management
- -
11/06/2023: Diabetes Management F/U:
72 year old male with PMH: NAEEM, Prostate Ca s/p Prostatectomy/Radiation (2007), Nephrolithiasis, Right Hip OA, Left Hip DJD s/p TKR (~1yr ago), Glaucoma, urinary incontinence, Anxiety and T2DM, presented to the ED on 11/01 with c/o weakness and fall.
Noted for Sepsis due bacteremia, LLL PNA and UTI.
Glucose on admission was 214, A1C 11.5%, Cr 0.6, eGFR>60. Was taking Tresiba 55 units @ HS and NovoLog 10 units AC.
He was started on Lantus 55 units @ HS and Regular insulin [address] Martinez on admission and has remained on the same regimen throughout the weekend.
Pt awake, A/O x3, sitting up in chair, offers no complaints, able to discuss diabetes mgt. States he has an upcoming 1st time visit with Endocrine- Dr. Augustin next month. He reports trying several oral meds like Metformin but he did not tolerate
them.
11/04 premeal glucose stable and in range 108 to 208, fasting 115 this AM.
Will make no changes to current regimen: NovoLog 8 units AC, Lantus 55 units @ HS with low corrective insulin
Will closely monitor glucose and further adjust insulin if necessary.
Pt reports he has a glucose monitor but does not monitor often. Encouraged pt to get script for CGM and discuss GLP-1 with endo at this 1st visit
Will attempt calling the again tomorrow.
Diabetes History
- -
Type of Diabetes: 2 requiring insulin
Pre-Admission Diabetes Regimen
Lab Results
Hemoglobin A1c Cancelled 11/03/23 06:00
Insulin Pump Settings
IP Diabetes Regimen
11/05/23 11/05/23 11/05/23
11:41 16:43 21:14
POC Glucose 115 H 205 H 127 H
11/06/23
07:52
POC Glucose 115 H
Meal type: Lunch
Meal type: Breakfast
Amount consumed: 100%
Amount consumed: 55%
Patient Education
[2023-11-06 09:12] LABS: % Basophils 0.5 % (0-2); % Eosinophils 2.2 % (0-6); % Immature Granulocytes 0.4 % (0-0.5); % Lymphocytes 17.6 % (20.5-51.1); % Neutrophils 69.3 % (42.2-75.2); Absolute Eosinophils 0.1 10^3/uL (0-0.7); Absolute Monocytes 0.6 10^3/uL (0.1-0.6); Absolute Neutrophils 3.9 10^3/uL (1.4-6.5); Hematocrit 38.6 % (39.0-52.0); Hemoglobin 13.6 g/dL (13.0-18.0); Mean Corp Hgb Conc. 35.2 g/dL (33.0-37.0); Mean Corpuscular Hgb 29.4 pg (27.0-31.0); Mean Corpuscular Volume 83.4 fL (80.0-94.0); Mean Platelet Volume 11.3 fL (7.4-10.4); Nucleated Red Blood Cells % 0 % (-); Platelet Count 214 10^3/uL (130-400); Red Blood Cell Count 4.63 10^6/uL (4.70-6.10); Red Cell Dist. Width 12.9 % (11.5-14.5); White Blood Cell Count 5.6 10^3/uL (4.8-10.8)
[2023-11-06 09:27] LABS: Blood Urea Nitrogen 13 mg/dl (9-20); Calcium 9.7 mg/dl (8.4-10.2); Carbon Dioxide 23 mmol/L (22-30); Chloride 107 mmol/L (98-107); Estimated Creatinine Clearance 110 ml/min; Glucose 157 mg/dl (70-99); Potassium 3.8 mmol/L (3.5-5.1); Sodium 138 mmol/L (135-145); eGFR > 60.00
--- NOTE | 2023-11-06 10:43 | CM ---
CM reviewed chart- possible dc home later today
Bedside meeting with pt, plan remains home with [facility]
He will call spouse or his sons for transport home
TT/Dr Vora and [facility]N order requested
Discharge Disposition- home with [facility]- family transport
[2023-11-06 11:21] VITALS: BP 134/74
[2023-11-06 11:42] LABS: Glucose - Point of Care 182 mg/dl (70-99)
[2023-11-06] MEDS: NOVOLOG FLEXPEN-LOW RESISTANCE 1 UNITS SC (12:12)
--- NOTE | 2023-11-06 14:41 | W.PN.UPDATE ---
Update Note
Progress Note Update
I saw and evaluated the patient. I reviewed the resident�s note and agree with findings and plan as documented in the resident�s note.
Resolved sepsis parameters. The patient tolerating diet. Voicing no specific complaints. Abdomen benign. Passing urine without difficulty or retention. Blood sugars have improved.
Bacteremia has resolved as well.
Medically stable for DC on oral Augmentin for another week.
Patient was shown his Accu-Cheks while he is almost at his home dose of insulin in fact slightly low with regards to aspart. He was told that with good diet and being compliant with the insulin treatments alone should be suffice to treat the
hyperglycemia from his diabetes. He also has a coming up appointment with his rn hyperbaric.
Total time of dc 35 min
[2023-11-06 14:59] VITALS: BP 128/70
--- NOTE | 2023-11-06 15:03 | W.DCSUMMARY ---
Discharge Summary
Discharge Data
Date of Admission: 11/03/23
Date of Discharge: 11/06/23
-
Pending Results: No
Hospital Course
Primary diagnosis:
-Sepsis with bacteremic UTI with Klebsiella pneumoniae
Secondary diagnosis:
-Diabetes mellitus type 2
-History of urinary incontinence
-Anxiety
Hospital course:
Nick is a 72-year-old man who presented to the ED with diffuse weakness. After lifting some heavy groceries he felt quite tired and needed to sit down and was not able to stand back up. He also had a cough for the past 3 weeks. Upon arrival to
the ED he had a temperature of 100.4, WBC 12.4, neutrophils 82.4%, urine analysis also positive for nitrite, trace leukocyte esterase, and occult blood. Chest x-ray showed mild hazy opacification, possible atelectasis although infection cannot be
excluded. Abdominal/pelvic CT showed no acute abnormalities. COVID-negative. Patient was admitted for sepsis secondary to pneumonia versus UTI. Started on IV ceftriaxone and oral azithromycin. Urine and blood cultures were taken. WBC trended
downward and fevers resolved with day 2 on IV antibiotics. Urine and blood cultures came back for Klebsiella pneumoniae. Oral azithromycin stopped. Sepsis was more likely to be due to underlying UTI rather than pneumonia and lung findings on
x-ray more likely to be due to atelectasis. Patient has a history of urinary incontinence and wears diapers at home. Diabetes poorly controlled with hemoglobin A1c 11.5. Patient educated on importance of diabetic management. Bladder scan was
done to evaluate for post renal obstruction. No signs of obstruction. Klebsiella sensitive to Augmentin. Patient sent home on Augmentin p.o.
Today, patient is clinically stable and being sent home on Augmentin p.o. Continue insulin degludec 55 units, with change of his NovoLog aspart from 5 units at home to 8 units as glucose levels were well-managed on this regimen in the hospital.
Patient educated on importance of diabetic management. Plans to follow-up with pain coordinator.
Discharge Plan
-
Patient Disposition: Home (Routine Discharge)
Discharge Diagnosis/Procedures: Sepsis with bacteremic UTI with Klebsiella pneumoniae
Condition: Good
Diet: Diabetic, Carb Controlled
Activity: As tolerated
Driving Restrictions: As prior to admission
Bathing Restrictions: None
Referrals:
Treasure Augustin MD [Consulting Staff] - in two weeks
UNKNOWN - PT DOES,NOT KNOW [Family Provider] -
Prescriptions:
New
amoxicillin-pot clavulanate 875-125 mg tablet
1 tab PO BID Qty: 14 0RF
Continued
insulin degludec [Tresiba FlexTouch U-100] 100 unit/mL (3 mL) Insulin Pen
55 unit SC HS
escitalopram oxalate [Lexapro] 10 mg Tablet
10 mg PO 1XD
Rx Instructions:
at HS
Changed
Novolog U-100 Insulin aspart
8 units SC TIDWMEAL Qty: 0 0RF
Discharge Orders:
Discharge Patient (As Directed); Ordered 11/06/23
Ordered By: Edie Nunez
Discharge Date and Time
Print Language: TANZANIAN
== END 2023-11-06 15:25 | disposition home health service (06) | DRG 872 ==
LOC: 4 EAST ACU 02:26
PROVIDERS: Internal Medicine; ADMITTING PHYSICIAN Internal Medicine; ATTENDING PHYSICIAN Internal Medicine; EMERGENCY PHYSICIAN Emergency Medicine
DX: A41.9 Sepsis, unspecified organism (principal); N39.0 Urinary tract infection, site not specified; J98.11 Atelectasis; Z11.52 Encounter for screening for COVID-19; F41.9 Anxiety disorder, unspecified; E11.65 Type 2 diabetes mellitus with hyperglycemia
CPT/HCPCS: 71046; 74176; 80048; 80053; 81003; 81015; 82962; 83036; 83605; 83735; 83880; 85025; 85027; 87040; 87077; 87086; 87149; 87186; 87205; 87811; 93005; 96360; 97116; 97162; 97166; 99285

== ENCOUNTER 2023-11-21 16:04 | Emergency (ER) | payer BC, SELFPAY ==
[2023-11-21 16:23] VITALS: BP 137/89
[2023-11-21 18:51] VITALS: BP 131/73
--- NOTE | 2023-11-21 19:33 | ED.GENMED ---
History of Present Illness
General
Chief Complaint: DVT/Possible Blood Clot
Source: patient
Exam Limitations: none
Time Seen by Provider: 11/21/23 18:55
History of Present Illness
History of Present Illness:
This is a 73 year old male that comes in with co right leg swelling. States that on Sunday he had an injection into the right hip. States that on Sunday and Sunday he was great. Then on Sunday he went for a walk. Sunday he started with some knee
pain and swelling. States that the pain got worse. Denies any fever, chills, chest pain, SOB, abd pain, nausea, vomiting, diarrhea, headache, dizziness, urinary burning
Past History
Past History
ED Past Medical History: Cancer (prostate cancer with radiation therapy;), NIDDM, Psychiatric (Anxiety, ) and Other (Multiple kidney stones, glaucoma, obstructive sleep apnea, Back pain, PNA, UTi, )
ED Past Surgical History: Orthopedic (Left knee replacement), Tonsilectomy (adenoids, ), Urological (Prostatectomy) and Other (Para Thyroid removal, )
Social History
Tobacco: Non-smoker
Alcohol: None
Drug: None
Personal:
Living: with family
Employment: Employed
Family History
Family History: Hypertension
Review of Systems
Review of Systems
All Other Systems: ROS reviewed and negative except as documented in HPI and ROS
Constitutional: Reports no symptoms; Denies fever or chills
EENT: Reports no symptoms
Respiratory: Reports no symptoms; Denies cough or trouble breathing
Cardiac: Reports no symptoms; Denies chest pain
ABD/GI: Reports no symptoms; Denies abdominal pain, nausea, vomiting or diarrhea
: Reports no symptoms; Denies dysuria, frequency or urgency
Musculoskeletal: Reports other (right leg pain with swelling)
Skin: Reports no symptoms
Neurological: Reports no symptoms; Denies dizzy or headache
Psychiatric: Reports no symptoms
Phy Exam
General Physical Exam
General Presentation: well appearing and no apparent distress
General age: appears stated age
General Skin: warm and dry
General Habitus: elderly
General Mental: alert
General Hydration: appears well hydrated
ENT Exam
ENT Exam: TM's normal, pharynx normal and neck supple
Eye Exam
Eye Exam: EOMI
Cardiovascular Exam
Cardiovascular Exam: regular rate/rhythm and normal peripheral pulses
Pulmonary Exam
Pulmonary Exam: lungs clear, no respiratory distress, no rales, chest non tender, no crackles, no rhonchi, no wheezing and no cough
Gastrointestinal Exam
Gastrointestinal Exam: normal bowel sounds, non tender, soft, no organomegaly, no pulsatile mass, non distended and other (Obese)
Musculoskeletal Exam
Musculoskeletal Exam: full ROM and edema (Slight +1 pitting edema right lower leg)
Skin Exam
Skin Exam: normal color, warm/dry, no rash and no petechia
Psychiatric Exam
Psychiatric Exam: normal mood/affect
Course
Orders/Labs/Results
Orders:
Orders
11/21/23 16:25
Periph Venous Lwr Ext Rt US [US Periph Venous LOWER Ext RT] Urgent
Comment:
Reason For Exam: swelling and calf pain
Vital Signs
Initial and Last Documented VS:
Initial Vital Signs
Temp Pulse Resp BP Pulse Ox
98.2 F 97 18 137/89 96
11/21/23 16:23 11/21/23 16:23 11/21/23 16:23 11/21/23 16:23 11/21/23 16:23
Last Documented Vital Signs
Temp Pulse Resp BP Pulse Ox
98.2 F 92 18 131/73 99
11/21/23 16:23 11/21/23 18:51 11/21/23 18:51 11/21/23 18:51 11/21/23 18:51
MDM/Problems Addressed
Differential Diagnosis Includes:
DVT, Bakers Cyst,
MDM/Problems Addressed:
This is a 73 year old male that comes in with c/o right leg swelling and discomfort. States that he has a hip injection on Sunday. Sunday and Sunday he was good. Sunday he went for a walk and then Sunday he started with some leg pain. States that
know he has swelling.
Will get US.
Back into see patient. Explained that he does have blood clots in the right leg. Will start patient on Eliquis and he will need to see The Primary care doctor for follow up. Patient to return with any concerns.
Chronic conditions affecting care: DM
Acute Exacerbation and/or Progression of Chronic Illness:
NA
*Radiology
Radiology exam reviewed: radiology read reviewed (US=Extensive right lower extremity DVT as described. )
*Pulse Oximetry
Patient hypoxic: no
*EKG
Interpreted by ED Provider?: NA
*Vulcanizing Press Operator Interpretation
Rate: Vulcanizing Press Operator- N/A
*Critical Care Note
Total Time (30-74mins, 75-104mins- exclusive of procedures): Not Applicable
ED Attending Note
-
Portions of this chart may have been created with voice recognition software.� Occasional wrong word or��sound alike� substitutions may have occurred due to the inherent limitations of voice recognition software.
Discharge Plan
Departure
Patient Disposition: Home (Routine Discharge)
Date of Disposition: 11/21/23
Time of Disposition: 19:42
Patient with high blood pressure during this ER visit?: Yes
Condition: Good
Covid-19: Not Applicable
Discharge Problem:
DVT (deep venous thrombosis)
Instructions: Deep Vein Thrombosis (Blood Clots in the Legs) (DC), BLOOD PRESSURE
Prescriptions:
New
Eliquis 5 mg tablet
10 mg PO BID 7 Days Qty: 28 0RF
No Action
insulin degludec [Tresiba FlexTouch U-100] 100 unit/mL (3 mL) Insulin Pen
55 unit SC HS
escitalopram oxalate [Lexapro] 10 mg Tablet
10 mg PO HS
insulin aspart U-100 [Novolog FlexPen U-100 Insulin] 100 unit/mL (3 mL) Insulin Pen
8 unit SC TID
Activity Restrictions/Additional Instructions:
As discussed, your ultrasound shows that there is extensive DVT of the right leg. You have been started on a blood thinner and a prescription has been sent to your Pharmacy. Please take Eliquis 10mg BID for the next 7 days. You will need to follow
up with the family doctor as after the 7 days the dose is decreased to 5mg BID. Please increase your water intake to 8-8oz glasses daily. IF YOU HAVE INCREASED SWELLING, PAIN OR YOU HAVE ANY OTHER CONCERNS PLEASE RETURN TO THE EMERGENCY ROOM.
Interventions
Interventions:
*Risk Screen - Suicide Last Done: 11/21/23 18:50
*General Assessment Last Done: 11/21/23 18:50
*Neglect/Abuse Screening Last Done: 11/21/23 18:50
ED- Fall Risk Assessment Last Done: 11/21/23 18:50
ED- Cardiac Assessment Last Done: 11/21/23 18:50
ED- Pulmonary Assessment Last Done: 11/21/23 18:50
ED-Peripheral Vascular Assessment Last Done: 11/21/23 18:50
Discharge Date and Time
Print Language: ZIMBABWEAN
[2023-11-21] MEDS: ELIQUIS 10 MG PO (19:58)
== END 2023-11-21 20:09 | disposition home or self-care (01) ==
LOC: EMR 16:04
PROVIDERS: EMERGENCY PHYSICIAN Student in an Organized Health Care Education/Training Program; FAMILY PHYSICIAN Internal Medicine
DX: I82.411 Acute embolism and thrombosis of right femoral vein (principal); M79.604 Pain in right leg; R03.0 Elevated blood-pressure reading, without diagnosis of hypertension; E11.9 Type 2 diabetes mellitus without complications; G47.33 Obstructive sleep apnea (adult) (pediatric); H40.9 Unspecified glaucoma; F41.9 Anxiety disorder, unspecified; Z96.652 Presence of left artificial knee joint; Z87.442 Personal history of urinary calculi; Z85.46 Personal history of malignant neoplasm of prostate; Z92.3 Personal history of irradiation; Z87.440 Personal history of urinary (tract) infections; Z90.79 Acquired absence of other genital organ(s)
CPT/HCPCS: 99284; 93971

== ENCOUNTER 2023-12-17 13:30 | Emergency (ER) | payer BC, SELFPAY ==
[2023-12-17 13:31] VITALS: BP 136/73
--- NOTE | 2023-12-17 13:57 | ED.GENMED ---
History of Present Illness
General
Chief Complaint: Abdominal Symptoms
Source: patient, records and spouse
Exam Limitations: none
Time Seen by Provider: 12/17/23 13:39
Nursing documentation reviewed up to this point in time: agreed with
History of Present Illness
History of Present Illness:
Patient is a 73-year-old male who presents to the emergency department with left lower quadrant abdominal pain. Patient states it has been intermittent for couple days and then became constant this a.m. and became more severe. Patient denies
nausea, vomiting, diarrhea or constipation. Patient denies fever or chills. Patient denies any anorexia. Patient denies symptoms. Patient denies any recent illnesses or injuries. Patient's had kidney stones in the past and this does not feel
like that. In addition the patient is demonstrated diverticulosis on previous CT scans.
Past History
Past History
ED Past Medical History: Cancer (prostate cancer with radiation therapy;), NIDDM, Psychiatric (Anxiety, ) and Other (Multiple kidney stones, glaucoma, obstructive sleep apnea, Back pain, PNA, UTi, )
ED Past Surgical History: Orthopedic (Left knee replacement), Tonsilectomy (adenoids, ), Urological (Prostatectomy) and Other (Para Thyroid removal, )
Social History
Tobacco: Non-smoker
Alcohol: None
Drug: None
Personal:
Living: with family
Employment: Employed
Family History
Family History: Hypertension
Review of Systems
Review of Systems
All Other Systems: ROS reviewed and negative except as documented in HPI and ROS
Constitutional: Reports no symptoms
EENT: Reports no symptoms
Respiratory: Reports no symptoms
Cardiac: Reports no symptoms
ABD/GI: Reports abdominal pain; Denies nausea, vomiting, diarrhea, constipated, bloody stools, black stools or anorexia
: Reports no symptoms
Musculoskeletal: Reports no symptoms
Skin: Reports no symptoms
Neurological: Reports no symptoms
Hematologic/Lymphatic: Reports no symptoms
Psychiatric: Reports no symptoms
Phy Exam
Physical Exam
Physical Exam:
Physical Exam
General: mild distress, alert and appropriate, obese, well hydrated
HENT: Normocephalic, supple
Eyes: Clear sclera, conjuctiva without injection
Heart: Regular rhythm and rate. No S3, S4. No murmur.
Lungs: No respiratory distress, no stridor, lung sounds clear and equal bilaterally
Abdomen: Soft, moderate left-sided abdominal tenderness with minimal guarding but no rebound, no organomegaly, no CVA tenderness, BS good
Neuro: Alert and oriented x 3, CN II - XII intact, no motor focality, no cerebellar dysfunction
Skin: no rash
Psychiatric: well kept. interactive and cooperative
Extremities: No cyanosis, tenderness, Good and equal peripheral pulses. Take with chronic +1-2 pitting of the right lower extremity
Scores
Heart Failure Risk
Heart Failure Risk Score: Not Applicable
Heart Score for Chest Pain Patients
STEMI patient?: Not applicable
Withdrawal Assessment of Alcohol
Withdrawal Assessment Completed?: Not applicable
Course
Orders/Labs/Results
Orders:
Orders
12/17/23 13:56
0.9% Sodium Chloride 1000 ml [Nss] 1,000 ml IV BOLUS
HYDROmorphone [Dilaudid] 0.5 mg IV NOW STA
Ondansetron Injectable [Zofran] 4 mg IV NOW STA
12/17/23 13:57
CT Abd/Pel (IV only)-DH only Urgent
Comment:
Reason For Exam: LLQ tender hx of diverticulosis
12/17/23 14:23
Complete Blood Count/With Diff Urgent
Comprehensive Metabolic Panel Urgent
12/17/23 16:13
Urinalysis Reflex To Culture Urgent
Date Specimen was Collected: 12/17/23
Time Specimen was Collected: 16:07
12/17/23 17:34
Amoxicillin 875 mg/Clav 125 mg [Augmentin 875 mg/125 mg] 1 tablet PO NOW STA
Abnormal Lab Results
12/17/23
14:23
RBC 4.49 L 10^6/uL
(4.70-6.10)
Hgb 12.7 L g/dL
(13.0-18.0)
Hct 36.8 L %
(39.0-52.0)
MPV 11.2 H fL
(7.4-10.4)
Lymphocytes % 17.7 L %
(20.5-51.1)
BUN 25 H mg/dl
(9-20)
Glucose 142 H mg/dl
(70-99)
12/17/23 14:23
12/17/23 14:23
Vital Signs
Initial and Last Documented VS:
Initial Vital Signs
Temp Pulse Resp BP Pulse Ox
98.2 F 88 16 136/73 98
12/17/23 13:31 12/17/23 13:31 12/17/23 13:31 12/17/23 13:31 12/17/23 13:31
Last Documented Vital Signs
Temp Pulse Resp BP Pulse Ox
98.2 F 88 16 126/94 94
12/17/23 13:31 12/17/23 13:31 12/17/23 13:31 12/17/23 15:00 12/17/23 15:00
*Radiology
Radiology exam reviewed: radiology read reviewed (Mild sigmoid diverticulitis)
*Pulse Oximetry
Patient hypoxic: no
*EKG
Interpreted by ED Provider?: NA
*Inbound Call Center Agent Interpretation
Rate: Inbound Call Center Agent- N/A
*Critical Care Note
Total Time (30-74mins, 75-104mins- exclusive of procedures): Not Applicable
Update Note
Update Note:
Patient has mild diverticulitis by CT scan. Patient's white count is normal. Patient is feeling better at this time. Will treat the patient with Augmentin as an outpatient.
ED Attending Note
-
Portions of this chart may have been created with voice recognition software.� Occasional wrong word or��sound alike� substitutions may have occurred due to the inherent limitations of voice recognition software.
Discharge Plan
Departure
Patient Disposition: Home (Routine Discharge)
Date of Disposition: 12/17/23
Time of Disposition: 17:34
Patient with high blood pressure during this ER visit?: No
Condition: Fair
Covid-19: Not Applicable
Discharge Problem:
Acute diverticulitis
Instructions: Low Fiber Diet, Diverticulitis (DC)
Prescriptions:
New
amoxicillin-pot clavulanate 875-125 mg tablet
1 tab PO BID Qty: 20 0RF
oxycodone 5 mg tablet
5 mg PO Q4H PRN (Reason: Pain) Qty: 15 0RF
No Action
insulin degludec [Tresiba FlexTouch U-100] 100 unit/mL (3 mL) Insulin Pen
55 unit SC HS
escitalopram oxalate [Lexapro] 10 mg Tablet
10 mg PO HS
insulin aspart U-100 [Novolog FlexPen U-100 Insulin] 100 unit/mL (3 mL) Insulin Pen
8 unit SC TID
Eliquis 5 mg tablet
10 mg PO BID 7 Days Qty: 28 0RF
Referrals:
Becky Moscoso MD [Family Provider] - Follow up in 2-3 days
Activity Restrictions/Additional Instructions:
Continue present medications and therapy. Any increasing pain or fever please return immediately
Interventions
Interventions:
*Risk Screen - Suicide Last Done: 12/17/23 13:31
*General Assessment Last Done: 12/17/23 14:06
*Neglect/Abuse Screening Last Done: 12/17/23 13:31
*ED COVID-19 Vaccine History Last Done: 12/17/23 14:06
DQ-Saxkbt-Offyolzphu Assessment Last Done: 12/17/23 14:48
Discharge Date and Time
Print Language: FIJIAN
[2023-12-17 14:07] VITALS: BMI 35.2
[2023-12-17] MEDS: NSS 1000 IV (14:19)
[2023-12-17] MEDS: DILAUDID 0.5 MG IV (14:20)
[2023-12-17] MEDS: ZOFRAN 4 MG IV (14:20)
[2023-12-17 14:25] VITALS: BP 107/96
[2023-12-17 14:40] LABS: % Basophils 0.8 % (0-2); % Eosinophils 2.8 % (0-6); % Immature Granulocytes 0.3 % (0-0.5); % Lymphocytes 17.7 % (20.5-51.1); % Monocytes 7.9 % (1.7-9.3); % Neutrophils 70.5 % (42.2-75.2); Absolute Basophils 0.1 10^3/uL (0-0.2); Absolute Eosinophils 0.2 10^3/uL (0-0.7); Absolute Lymphocytes 1.4 10^3/uL (1.2-3.4); Absolute Monocytes 0.6 10^3/uL (0.1-0.6); Absolute Neutrophils 5.6 10^3/uL (1.4-6.5); Hematocrit 36.8 % (39.0-52.0); Hemoglobin 12.7 g/dL (13.0-18.0); Mean Corp Hgb Conc. 34.5 g/dL (33.0-37.0); Mean Corpuscular Hgb 28.3 pg (27.0-31.0); Mean Platelet Volume 11.2 fL (7.4-10.4); Nucleated Red Blood Cells % 0 % (-); Platelet Count 248 10^3/uL (130-400); Red Blood Cell Count 4.49 10^6/uL (4.70-6.10); Red Cell Dist. Width 12.9 % (11.5-14.5)
[2023-12-17 14:46] LABS: ALT (SGPT) 25 U/L (0-50); AST (SGOT) 27 U/L (17-59); Albumin 3.8 g/dl (3.5-5.0); Alkaline Phosphatase 62 U/L (38-126); Blood Urea Nitrogen 25 mg/dl (9-20); Calcium 9.7 mg/dl (8.4-10.2); Carbon Dioxide 24 mmol/L (22-30); Chloride 105 mmol/L (98-107); Estimated Creatinine Clearance 86 ml/min; Glucose 142 mg/dl (70-99); Sodium 140 mmol/L (135-145); Total Bilirubin 0.6 mg/dl (0.2-1.3); Total Protein 6.6 g/dl (6.3-8.2); eGFR > 60.00
[2023-12-17 15:00] VITALS: BP 126/94
[2023-12-17 16:23] LABS: Urine Albumin Negative (Neg - Trace); Urine Bilirubin Negative (Negative); Urine Character Clear (Clear); Urine Color Yellow; Urine Glucose Negative (Negative); Urine Ketone Negative (Negative); Urine Leukocyte Negative (Negative); Urine Nitrite Negative (Negative); Urine Occult Blood Negative (Negative); Urine Specific Gravity 1.015 (<1.030); Urine Urobilinogen Negative (Neg - 1+)
[2023-12-17] MEDS: AUGMENTIN 875 MG/125 MG 1 TABLET PO (17:47)
[2023-12-17 17:58] VITALS: BP 134/90
== END 2023-12-17 18:22 | disposition home or self-care (01) ==
LOC: EMR 13:30
PROVIDERS: EMERGENCY PHYSICIAN Emergency Medicine; FAMILY PHYSICIAN Internal Medicine
DX: R10.31 Right lower quadrant pain (principal); E11.9 Type 2 diabetes mellitus without complications; F41.9 Anxiety disorder, unspecified; G47.33 Obstructive sleep apnea (adult) (pediatric); Z85.46 Personal history of malignant neoplasm of prostate; Z87.440 Personal history of urinary (tract) infections; Z87.442 Personal history of urinary calculi; Z90.79 Acquired absence of other genital organ(s); Z96.652 Presence of left artificial knee joint
CPT/HCPCS: 99284; 99374; 96375; 96361; 74177; 80053; 81003; 85025; 96374; Q9967

== ENCOUNTER 2024-02-25 11:25 | Emergency (ER) | payer BC, MEDICARE, SELFPAY ==
[2024-02-25 11:40] VITALS: BP 161/85
[2024-02-25 11:41] LABS: Glucose - Point of Care 283 mg/dl (70-99)
[2024-02-25 13:40] VITALS: BP 151/78
[2024-02-25 13:45] VITALS: BMI 35.3
[2024-02-25 14:01] LABS: % Basophils 0.9 % (0-2); % Eosinophils 3.2 % (0-6); % Immature Granulocytes 0.3 % (0-0.5); % Lymphocytes 24.9 % (20.5-51.1); % Monocytes 7.6 % (1.7-9.3); % Neutrophils 63.1 % (42.2-75.2); Absolute Basophils 0.1 10^3/uL (0-0.2); Absolute Eosinophils 0.2 10^3/uL (0-0.7); Absolute Lymphocytes 1.7 10^3/uL (1.2-3.4); Absolute Monocytes 0.5 10^3/uL (0.1-0.6); Absolute Neutrophils 4.4 10^3/uL (1.4-6.5); Hematocrit 42.8 % (39.0-52.0); Hemoglobin 14.7 g/dL (13.0-18.0); Mean Corp Hgb Conc. 34.3 g/dL (33.0-37.0); Mean Corpuscular Hgb 28.5 pg (27.0-31.0); Mean Corpuscular Volume 82.9 fL (80.0-94.0); Mean Platelet Volume 11.6 fL (7.4-10.4); Nucleated Red Blood Cells % 0 % (-); Platelet Count 207 10^3/uL (130-400); Red Blood Cell Count 5.16 10^6/uL (4.70-6.10); Red Cell Dist. Width 12.7 % (11.5-14.5); White Blood Cell Count 6.9 10^3/uL (4.8-10.8)
[2024-02-25 14:03] LABS: Urine Albumin Negative (Neg - Trace); Urine Bilirubin Negative (Negative); Urine Character Clear (Clear); Urine Color Yellow; Urine Glucose 3+ (Negative); Urine Ketone Negative (Negative); Urine Leukocyte Negative (Negative); Urine Nitrite Negative (Negative); Urine Occult Blood Negative (Negative); Urine Urobilinogen Negative (Neg - 1+)
[2024-02-25 14:13] VITALS: BP 130/78
[2024-02-25 14:14] LABS: ALT (SGPT) 29 U/L (0-50); AST (SGOT) 24 U/L (17-59); Alkaline Phosphatase 70 U/L (38-126); Blood Urea Nitrogen 24 mg/dl (9-20); Calcium 9.9 mg/dl (8.4-10.2); Carbon Dioxide 24 mmol/L (22-30); Chloride 104 mmol/L (98-107); Estimated Creatinine Clearance 110 ml/min; Glucose 251 mg/dl (70-99); Potassium 4.5 mmol/L (3.5-5.1); Sodium 138 mmol/L (135-145); Total Bilirubin 0.4 mg/dl (0.2-1.3); Total Protein 6.9 g/dl (6.3-8.2); eGFR > 60.00
--- NOTE | 2024-02-25 15:08 | ED.GENMED ---
History of Present Illness
General
Chief Complaint: Blood Sugar Problem
Time Seen by Provider: 02/25/24 13:30
History of Present Illness
History of Present Illness:
73-year-old male presents to the emergency department for evaluation of elevated blood sugar readings at home for the past several weeks. Notes that his Dexcom was vacillating between high and normal readings, after several weeks of sustained
elevated readings greater than 400 the patient confirmed by using his fingerstick glucometer that the blood sugar was indeed greater than 400. He denies any symptoms, denies any polydipsia or polyuria. Has been compliant with his insulin regimen
and according to his has not had any significant dietary indiscretions recently. No recent fevers or chills. Denies any complaints otherwise at this time
Past History
Past History
ED Past Medical History: Cancer (prostate cancer with radiation therapy;), NIDDM, Psychiatric (Anxiety, ) and Other (Multiple kidney stones, glaucoma, obstructive sleep apnea, Back pain, PNA, UTi, )
ED Past Surgical History: Orthopedic (Left knee replacement), Tonsilectomy (adenoids, ), Urological (Prostatectomy) and Other (Para Thyroid removal, )
Social History
Tobacco: Non-smoker
Alcohol: None
Drug: None
Personal:
Living: with family
Employment: Employed
Family History
Family History: Hypertension
Review of Systems
Review of Systems
Allergies reviewed?: Yes
All Other Systems: ROS reviewed and negative except as documented in HPI and ROS
Phy Exam
Physical Exam
Physical Exam:
GEN: Well appearing, NAD, WDWN
HEENT: Oral mucosa moist, no scleral icterus
Cardiac: Regular rate and rhythm, no murmurs
Lung: No respiratory distress, no tachypnea, lungs clear to auscultation bilaterally
MSK: No gross deformity or injuries
Skin: Good color, no pallor or jaundice, no rashes, no foot ulcerations or wounds
Neuro: AO x3, moves all extremities freely
Psych: Calm, cooperative
Course
Orders/Labs/Results
Orders:
Orders
02/25/24 13:30
Electrocardiogram (*1) Urgent
Reason for Study: Chest Pain
Cardiac Monitoring- Treatment ONCE
IV Insert/Care/Rem.- Treatment PRN
02/25/24 13:31
EKG- Treatment ONCE
02/25/24 13:51
Complete Blood Count/With Diff Urgent
Comprehensive Metabolic Panel Urgent
Urinalysis Reflex To Culture Urgent
Date Specimen was Collected: 02/25/24
Time Specimen was Collected: 13:49
Abnormal Lab Results
02/25/24 02/25/24
11:39 13:51
MPV 11.6 H fL
(7.4-10.4)
BUN 24 H mg/dl
(9-20)
Glucose 251 H mg/dl
(70-99)
Urine Glucose 3+ A
(Negative)
POC Glucose 283 H mg/dl
(70-99)
02/25/24 13:51
02/25/24 13:51
Vital Signs
Initial and Last Documented VS:
Initial Vital Signs
Temp Pulse Resp BP Pulse Ox
98.2 F 64 16 161/85 98
02/25/24 11:40 02/25/24 11:40 02/25/24 11:40 02/25/24 11:40 02/25/24 11:40
Last Documented Vital Signs
Temp Pulse Resp BP Pulse Ox
98.2 F 67 17 130/78 95
02/25/24 11:40 02/25/24 15:00 02/25/24 15:00 02/25/24 14:13 02/25/24 15:00
MDM/Problems Addressed
MDM/Problems Addressed:
Unclear etiology to his elevated blood sugar readings. I discussed with his endocrinology office who recommended slight increase in mealtime dosage by 2 units each with follow-up as an outpatient
*Critical Care Note
Total Time (30-74mins, 75-104mins- exclusive of procedures): Not Applicable
ED Attending Note
-
Portions of this chart may have been created with voice recognition software.� Occasional wrong word or��sound alike� substitutions may have occurred due to the inherent limitations of voice recognition software.
Discharge Plan
Departure
Patient Disposition: Home (Routine Discharge)
Date of Disposition: 02/25/24
Time of Disposition: 15:08
Patient with high blood pressure during this ER visit?: No
Discharge Problem:
Hyperglycemia
Instructions: Type 2 Diabetes (DC)
Prescriptions:
No Action
insulin degludec [Tresiba FlexTouch U-100] 100 unit/mL (3 mL) Insulin Pen
55 unit SC HS
escitalopram oxalate [Lexapro] 10 mg Tablet
10 mg PO HS
insulin aspart U-100 [Novolog FlexPen U-100 Insulin] 100 unit/mL (3 mL) Insulin Pen
8 unit SC BID
Rx Instructions:
breakfast and lunch
propranolol 20 mg Tablet
20 mg PO TID
insulin aspart U-100 [Novolog FlexPen U-100 Insulin] 100 unit/mL (3 mL) Insulin Pen
10 unit SC QPM
Rx Instructions:
dinner
Eliquis 5 mg tablet
5 mg PO BID
Referrals:
Eduarda Mancia NP [Non-Admitting Privileges] -
Activity Restrictions/Additional Instructions:
Increase your mealtime insulin doses by 2 units each (10 units breakfast and lunch, 12 units dinner)
Call your endocrine office for follow up, Eduarda Mancia is in the office tomorrow
Interventions
Interventions:
*Risk Screen - Suicide Last Done: 02/25/24 13:45
*General Assessment Last Done: 02/25/24 13:45
*Neglect/Abuse Screening Last Done: 02/25/24 13:45
ED- Fall Risk Assessment Last Done: 02/25/24 13:45
*ED COVID-19 Vaccine History Last Done: 02/25/24 13:45
*Nursing Disposition Last Done: 02/25/24 15:37
ED- Neurological Assessment Last Done: 02/25/24 13:45
Discharge Date and Time
Discharge Date/Time: 02/25/24 15:37
Print Language: FRENCH
== END 2024-02-25 15:37 | disposition home or self-care (01) ==
LOC: EMR 11:25
PROVIDERS: Physician Assistant; EMERGENCY PHYSICIAN Emergency Medicine; FAMILY PHYSICIAN Internal Medicine
DX: E11.65 Type 2 diabetes mellitus with hyperglycemia (principal)
CPT/HCPCS: 99284; 80053; 81003; 82962; 85025; 93005

== ENCOUNTER 2024-07-24 16:59 | Emergency (ER) | payer BC, SELFPAY ==
[2024-07-24 17:00] VITALS: BMI 34.9
[2024-07-24 17:04] VITALS: BP 148/83
[2024-07-24 17:07] VITALS: BP 148/83
--- NOTE | 2024-07-24 20:14 | ED.GENMED ---
History of Present Illness
General
Chief Complaint: Chest Problem
Source: patient and family
Exam Limitations: none
Time Seen by Provider: 07/24/24 19:49
History of Present Illness
History of Present Illness:
73yoM with a history of DVT on Eliquis, insulin-dependent diabetes, and obesity presenting with his family for evaluation of rib pain. Patient had a fall about 2 weeks ago onto his right arm. He was having very minor discomfort up until today. He
was doing yard work and was shoveling dirt when he felt a worsening pain in his right rib cage. Pain is coming in waves. He took naproxen without much relief. He denies any shortness of breath or abdominal pain.
Past History
Past History
ED Past Medical History: Cancer (prostate cancer with radiation therapy;), NIDDM, Psychiatric (Anxiety, ) and Other (Multiple kidney stones, glaucoma, obstructive sleep apnea, Back pain, PNA, UTi, )
ED Past Surgical History: Orthopedic (Left knee replacement), Tonsilectomy (adenoids, ), Urological (Prostatectomy) and Other (Para Thyroid removal, )
Social History
Tobacco: Non-smoker
Alcohol: None
Drug: None
Personal:
Living: with family
Employment: Employed
Family History
Family History: Hypertension
Phy Exam
General Physical Exam
General Presentation: well appearing and no apparent distress
General Skin: warm and dry
General Habitus: normal
General Mental: alert
ENT Exam
ENT Exam: normocephalic
Pulmonary Exam
Pulmonary Exam: lungs clear, no respiratory distress, no rales, no crackles, no rhonchi and other (+Tenderness to R anterior lower ribcage. No crepitus or skin changes. Bilateral breath sounds equal.)
Gastrointestinal Exam
Gastrointestinal Exam: non tender, soft and non distended
Neurological Exam
Neurological Exam: alert
[place] Coma Scale
Eye Opening: Spontaneous
Verbal Response: Oriented
Motor Response: Obeys Commands
GCS Total Score: 15
Skin Exam
Skin Exam: normal color and warm/dry
Psychiatric Exam
Psychiatric Exam: normal mood/affect
Course
Orders/Labs/Results
Orders:
Orders
07/24/24 17:13
CR Ribs-right 3 Vw W/pa Chest* Urgent
Comment:
Reason For Exam: pain/injury
07/24/24 20:13
Acetaminophen [Tylenol] 1,000 mg PO NOW STA
Ketorolac [Toradol] 30 mg IM NOW STA
Lidocaine [Lidocaine 4% Patch] 1 patch TOPICAL NOW STA
Apply Lidocaine patch(s) to:: R ribcage
Vital Signs
Initial and Last Documented VS:
Initial Vital Signs
Temp Pulse BP Pulse Ox
98.2 F 82 148/83 98
07/24/24 17:04 07/24/24 17:04 07/24/24 17:04 07/24/24 17:04
Last Documented Vital Signs
Temp Pulse Resp BP Pulse Ox
98.2 F 74 16 134/78 99
07/24/24 17:07 07/24/24 20:38 07/24/24 20:38 07/24/24 20:38 07/24/24 20:38
MDM/Problems Addressed
Differential Diagnosis Includes:
73yoM here with R rib pain. Had a fall 2 weeks ago. Pain mild but now worse after doing yard work today. No SOB. Worse with movement. VSS. There is chest wall tenderness on exam. Abdominal exam benign. Bilateral breath sounds equal. Differential
diagnosis includes: rib fracture, rib contusion, sprain
Rib series x-rays obtained and no fractures seen. Patient requesting Toradol as this has helped him in the past. Supportive care discussed including ice, lidocaine patches, Tylenol. reports a history of balance issues so will avoid any muscle
relaxants/narcotics. Advised f/u with PCP. He was discharged in stable condition.
*Critical Care Note
Total Time (30-74mins, 75-104mins- exclusive of procedures): Not Applicable
ED Attending Note
-
Portions of this chart may have been created with voice recognition software.� Occasional wrong word or��sound alike� substitutions may have occurred due to the inherent limitations of voice recognition software.
Discharge Plan
Departure
Patient Disposition: Home (Routine Discharge)
Date of Disposition: 07/24/24
Time of Disposition: 20:15
Patient with high blood pressure during this ER visit?: Yes
Discharge Problem:
Rib injury
Instructions: Rib injury in adults
Prescriptions:
No Action
insulin degludec [Tresiba FlexTouch U-100] 100 unit/mL (3 mL) Insulin Pen
55 unit SC HS
escitalopram oxalate [Lexapro] 10 mg Tablet
10 mg PO HS
insulin aspart U-100 [Novolog FlexPen U-100 Insulin] 100 unit/mL (3 mL) Insulin Pen
8 unit SC BID
Rx Instructions:
breakfast and lunch
propranolol 20 mg Tablet
20 mg PO TID
insulin aspart U-100 [Novolog FlexPen U-100 Insulin] 100 unit/mL (3 mL) Insulin Pen
10 unit SC QPM
Rx Instructions:
dinner
Eliquis 5 mg tablet
5 mg PO BID
Referrals:
Becky Moscoso MD [Family Provider] -
Activity Restrictions/Additional Instructions:
Apply ice to affected area. Use lidocaine patches daily (12 hours on, 12 hours off). Take Tylenol 650mg every 6 hours as needed for pain.
Please follow-up with your family doctor. Return to the ER with any new or worsening symptoms.
Interventions
Interventions:
*Risk Screen - Suicide Last Done: 07/24/24 17:07
*General Assessment Last Done: 07/24/24 19:43
*Neglect/Abuse Screening Last Done: 07/24/24 17:13
*ED- Fall Risk Assessment Last Done: 07/24/24 19:43
*ED COVID-19 Vaccine History Last Done: 07/24/24 17:13
*Nursing Disposition Last Done: 07/24/24 20:38
ED- Cardiac Assessment Last Done: 07/24/24 19:43
ED- Pulmonary Assessment Last Done: 07/24/24 19:43
Discharge Date and Time
Discharge Date/Time: 07/24/24 20:38
Print Language: MAURITANIAN
[2024-07-24] MEDS: LIDOCAINE 4% PATCH 1 PATCH TOPICAL (20:32)
[2024-07-24] MEDS: TYLENOL 1000 MG PO (20:32)
[2024-07-24] MEDS: TORADOL 30 MG IM (20:33)
[2024-07-24 20:38] VITALS: BP 134/78
== END 2024-07-24 20:38 | disposition home or self-care (01) ==
LOC: EMR 16:59
PROVIDERS: EMERGENCY PHYSICIAN Emergency Medicine; FAMILY PHYSICIAN Internal Medicine
DX: S29.9XXA Unspecified injury of thorax, initial encounter (principal); W19.XXXA Unspecified fall, initial encounter; E11.9 Type 2 diabetes mellitus without complications; G47.33 Obstructive sleep apnea (adult) (pediatric); Z86.718 Personal history of other venous thrombosis and embolism; Z85.46 Personal history of malignant neoplasm of prostate; Z79.4 Long term (current) use of insulin; Z79.01 Long term (current) use of anticoagulants
CPT/HCPCS: 96372; 99284; 71101

== ENCOUNTER 2024-12-19 03:52 | Inpatient (IN) | payer BC, MEDICARE, SELFPAY ==
[2024-12-19] VITALS (21 sets, daily range): BP systolic 99–141; BP diastolic 67–100; PULSE 88–102; BMI 35.5
--- NOTE | 2024-12-19 01:03 | ED.GENMED ---
History of Present Illness
<Mars Mason Jr., PA-C - Last Filed: 12/19/24 03:58>
General
Chief Complaint: Dizziness
Source: patient and ambulance crew
Exam Limitations: none
Time Seen by Provider: 12/19/24 01:02
Nursing documentation reviewed up to this point in time: agreed with
History of Present Illness
History of Present Illness:
74-year-old male past medical history of IDDM, previous DVT currently on Eliquis presenting to the emergency department today with concerns of an episode of lightheadedness dizziness at home. [place] very weak and tired when walking prior to arrival.
Denies specific chest pain. Did have an episode of diarrhea associated. Patient claims his symptoms have significantly improved. According to EMS additionally his pulse ox was in the high 80s that they placed him on 2 L nasal cannula with
improvement to the mid 90s. He does not use oxygen at baseline.
Past History
<Mars Mason Jr., PA-C - Last Filed: 12/19/24 03:58>
Past History
ED Past Medical History: Cancer (prostate cancer with radiation therapy;), NIDDM, Psychiatric (Anxiety, ) and Other (Multiple kidney stones, glaucoma, obstructive sleep apnea, Back pain, PNA, UTi, )
ED Past Surgical History: Orthopedic (Left knee replacement), Tonsilectomy (adenoids, ), Urological (Prostatectomy) and Other (Para Thyroid removal, )
Social History
Tobacco: Non-smoker
Alcohol: None
Drug: None
Personal:
Living: with family
Employment: Employed
Family History
Family History: Hypertension
Review of Systems
<Mars Mason Jr., PA-C - Last Filed: 12/19/24 03:58>
Review of Systems
Allergies reviewed?: Yes
All Other Systems: ROS reviewed and negative except as documented in HPI and ROS
Phy Exam
<DEB Horvath Jr.C - Last Filed: 12/19/24 03:58>
Physical Exam
Physical Exam:
GENERAL: Alert , in no apparent distress
EYE: pupils equal and reactive
NECK: Supple, no significant adenopathy.
ENT: o/p clr, mmm.
CARDIAC: Tachycardic regular
LUNGS: Clear breath sounds bilaterally, no acute respiratory distress, no wheezes/rales/rhonchi
ABDOMEN: Soft, without focal tenderness, no r/g, no cvat
NEUROLOGICAL: Alert and oriented, no focal neuro deficits
SKIN: Warm and dry, skin intact.
MUSCULOSKELETAL: No edema, well perfused.
PSYCH: Normal and appropriate interaction.
Course
<DEB Horvath Jr. - Last Filed: 12/19/24 03:58>
Orders/Labs/Results
Orders:
Orders
12/19/24 01:02
EKG [Electrocardiogram (*1)] Urgent
Reason for Study: Vertigo / Dizzy
EKG- Treatment ONCE
12/19/24 01:14
CBC/With Diff [Complete Blood Count/With Diff] Urgent
CMP [Comprehensive Metabolic Panel] Urgent
Troponin I Urgent
12/19/24 01:19
CT Chest PE Study Urgent
Comment:
Reason For Exam: Lightheaded, tachy, hypoxic, hx of DVT not on AC
12/19/24 02:03
0.9% Sodium Chloride 500 ml [Nss] 500 ml IV BOLUS
12/19/24 02:15
Heparin 8,600 units IV NOW STA
Heparin 28836 Units/250 ml 25,000 units in 250 ml IV PER PROTOCOL
Weight to be used for heparin protocol in kilograms (kg):: 107.5
Protocol:: DVT/PE
PTT Goal Range to be used:: PTT 73 to 111 seconds
Order type:: Initial
INITIAL Infusion Dose (UNITS/KG/hr) & then follow protocol:: 18 units/kg/hr
Infusion Dose in UNITS/hr & then follow protocol (UNITS/hr):: 1,900
INFUSION RATE in mL/hr & then follow protocol (mL/hr):: 19
For DVT/PE algorithm, re-bolus for low PTT?: Yes
PTT less than or equal to 64 seconds:: Re-bolus 80 units/kg (max 10,000units). Increase by 400 units/hr
(+ 4mL/hr)
PTT 64.1 to 72.9 seconds:: Re-bolus 40 units/kg (max 5,000 units). Increase by 200 units/hr
(+ 2mL/hr)
PTT 73 to 111 seconds:: Target Range. No change in rate.
PTT 111.1 to 130.9 seconds:: Decrease rate by 200 units/hr (- 2 mL/hr)
PTT 131 to 199.9 seconds:: HOLD for 1 hr. Then decrease by 300 units/hr (- 3mL/hr)
PTT greater than or equal to 200 seconds:: HOLD for 2 hrs & Notify Provider. Then decrease by 400 units/hr
(- 4mL/hr)
Lab follow-up:: Each change, PTT q6h until 2 consecutive are therapeutic. Then
PTT daily.
Nursing to Place Non Medication Order As Directed
Physician Order: PTT 6 hours after initial start of Heparin infusion
Above order entered?: Yes
12/19/24 02:33
Heparin 8,600 units IV PRN PRN
12/19/24 02:34
Heparin 4,300 units IV PRN PRN
12/19/24 02:40
PTT Urgent
12/19/24 03:21
Admit/Transfer Patient As Directed
Co-Sign Provider:
Level of Care: Inpatient admission
Assign to:: IMU- Intermediate Care
Physician / Group: Nik
Diagnosis: PE
Reason for Hospitalization: PE
Expected length of stay greater than two midnights?: Yes
ELOS- Estimated Length of Stay in days: 3
I certify the patient meets the requirements for IP care: Yes
PRN Pain Medication Management As Directed
May give lesser potent ordered pain med per pt: Yes
preference::
Protocol:: Medication orders for pain may be administered in a
manner that supports deferring to patient preference
when the pt is:
- Requesting an ordered lesser potent pain medication.
Least to most potent pain medications are defined
as: acetaminophen < NSAID < tramadol < opioids
(morphine, oxycodone, hydromorphone).
- Requesting a lesser dose of the same medication IF
ORDERED.
- Requesting a less intrusive route of administration
if both routes are prescribed by the provider (PO <
IV).
12/19/24 03:25
Code Status As Directed
Resuscitation Status: Full Code
12/19/24 03:41
BNP [NT-proBNP] Routine
12/19/24 08:50
PTT Urgent
Abnormal Lab Results
12/19/24 12/19/24 12/19/24
01:13 01:14 02:40
WBC 14.0 H 10^3/uL
(4.8-10.8)
MPV 10.7 H fL
(7.4-10.4)
Abs Immat Gran (auto) 0.1 H 10^3/uL
(0-0.05)
Absolute Neuts (auto) 11.4 H 10^3/uL
(1.4-6.5)
Absolute Monos (auto) 0.9 H 10^3/uL
(0.1-0.6)
Neutrophils % 81.2 H %
(42.2-75.2)
Lymphocytes % 10.4 L %
(20.5-51.1)
APTT 22.6 L Sec
(23.4-35.0)
Chloride 109 H mmol/L
(98-107)
Carbon Dioxide 18 L mmol/L
(22-30)
BUN 26 H mg/dl
(9-20)
Glucose 260 H mg/dl
(70-99)
Troponin I 0.072 H* ng/ml
POC Glucose 256 H mg/dl
(70-99)
12/19/24 01:14
12/19/24 01:14
Vital Signs
Initial and Last Documented VS:
Initial Vital Signs
BP
104/67
12/19/24 01:06
Last Documented Vital Signs
Temp Pulse Resp BP Pulse Ox
97.7 F 107 16 114/77 93
12/19/24 01:08 12/19/24 03:20 12/19/24 03:15 12/19/24 03:20 12/19/24 03:20
<Varun Hyatt, DO - Last Filed: 12/19/24 02:18>
Orders/Labs/Results
Orders:
Orders
12/19/24 01:02
EKG [Electrocardiogram (*1)] Urgent
Reason for Study: Vertigo / Dizzy
EKG- Treatment ONCE
12/19/24 01:14
CBC/With Diff [Complete Blood Count/With Diff] Urgent
CMP [Comprehensive Metabolic Panel] Urgent
Troponin I Urgent
12/19/24 01:19
CT Chest PE Study Urgent
Comment:
Reason For Exam: Lightheaded, tachy, hypoxic, hx of DVT not on AC
12/19/24 02:03
0.9% Sodium Chloride 500 ml [Nss] 500 ml IV BOLUS
12/19/24 02:15
Heparin 8,600 units IV NOW STA
Heparin 46688 Units/250 ml 25,000 units in 250 ml IV PER PROTOCOL
Weight to be used for heparin protocol in kilograms (kg):: 107.5
Protocol:: DVT/PE
PTT Goal Range to be used:: PTT 73 to 111 seconds
Order type:: Initial
INITIAL Infusion Dose (UNITS/KG/hr) & then follow protocol:: 18 units/kg/hr
Infusion Dose in UNITS/hr & then follow protocol (UNITS/hr):: 1,900
INFUSION RATE in mL/hr & then follow protocol (mL/hr):: 19
For DVT/PE algorithm, re-bolus for low PTT?: Yes
PTT less than or equal to 64 seconds:: Re-bolus 80 units/kg (max 10,000units). Increase by 400 units/hr
(+ 4mL/hr)
PTT 64.1 to 72.9 seconds:: Re-bolus 40 units/kg (max 5,000 units). Increase by 200 units/hr
(+ 2mL/hr)
PTT 73 to 111 seconds:: Target Range. No change in rate.
PTT 111.1 to 130.9 seconds:: Decrease rate by 200 units/hr (- 2 mL/hr)
PTT 131 to 199.9 seconds:: HOLD for 1 hr. Then decrease by 300 units/hr (- 3mL/hr)
PTT greater than or equal to 200 seconds:: HOLD for 2 hrs & Notify Provider. Then decrease by 400 units/hr
(- 4mL/hr)
Lab follow-up:: Each change, PTT q6h until 2 consecutive are therapeutic. Then
PTT daily.
Nursing to Place Non Medication Order As Directed
Physician Order: PTT 6 hours after initial start of Heparin infusion
Above order entered?: Yes
12/19/24 02:33
Heparin 8,600 units IV PRN PRN
12/19/24 02:34
Heparin 4,300 units IV PRN PRN
12/19/24 02:40
PTT Urgent
12/19/24 03:21
Admit/Transfer Patient As Directed
Co-Sign Provider:
Level of Care: Inpatient admission
Assign to:: IMU- Intermediate Care
Physician / Group: Nik
Diagnosis: PE
Reason for Hospitalization: PE
Expected length of stay greater than two midnights?: Yes
ELOS- Estimated Length of Stay in days: 3
I certify the patient meets the requirements for IP care: Yes
PRN Pain Medication Management As Directed
May give lesser potent ordered pain med per pt: Yes
preference::
Protocol:: Medication orders for pain may be administered in a
manner that supports deferring to patient preference
when the pt is:
- Requesting an ordered lesser potent pain medication.
Least to most potent pain medications are defined
as: acetaminophen < NSAID < tramadol < opioids
(morphine, oxycodone, hydromorphone).
- Requesting a lesser dose of the same medication IF
ORDERED.
- Requesting a less intrusive route of administration
if both routes are prescribed by the provider (PO <
IV).
12/19/24 03:25
Code Status As Directed
Resuscitation Status: Full Code
12/19/24 03:41
BNP [NT-proBNP] Routine
12/19/24 08:50
PTT Urgent
Abnormal Lab Results
12/19/24 12/19/24 12/19/24
01:13 01:14 02:40
WBC 14.0 H 10^3/uL
(4.8-10.8)
MPV 10.7 H fL
(7.4-10.4)
Abs Immat Gran (auto) 0.1 H 10^3/uL
(0-0.05)
Absolute Neuts (auto) 11.4 H 10^3/uL
(1.4-6.5)
Absolute Monos (auto) 0.9 H 10^3/uL
(0.1-0.6)
Neutrophils % 81.2 H %
(42.2-75.2)
Lymphocytes % 10.4 L %
(20.5-51.1)
APTT 22.6 L Sec
(23.4-35.0)
Chloride 109 H mmol/L
(98-107)
Carbon Dioxide 18 L mmol/L
(22-30)
BUN 26 H mg/dl
(9-20)
Glucose 260 H mg/dl
(70-99)
Troponin I 0.072 H* ng/ml
POC Glucose 256 H mg/dl
(70-99)
12/19/24 01:14
12/19/24 01:14
Vital Signs
Initial and Last Documented VS:
Initial Vital Signs
BP
104/67
12/19/24 01:06
Last Documented Vital Signs
Temp Pulse Resp BP Pulse Ox
97.7 F 107 16 114/77 93
12/19/24 01:08 12/19/24 03:20 12/19/24 03:15 12/19/24 03:20 12/19/24 03:20
<Mars Mason Jr., PA-C - Last Filed: 12/19/24 03:58>
MDM/Problems Addressed
MDM/Problems Addressed:
74-year-old male presenting to the emergency department from home after an episode where he felt lightheaded did not fully pass out felt generally weak and had an episode of diarrhea. Did feel some shortness of breath at the time symptoms have
since improved. According to EMS she had a pulse ox in the high 80s and was started on nasal cannula oxygen. Otherwise heart rate elevated here sinus tachycardia. Patient does have a history of DVT which was provoked by hospital stay 2 years ago
was on Eliquis for short period of time. Not currently anticoagulated. He denies any recent trauma surgery mobilization or leg swelling. Concerning his history hypoxia and tachycardia CT PE was ordered.
CT showing bilateral pulmonary emboli. Patient was ordered heparin. He denies any recent bleeding history or GI bleeding. Plan to admit for further treatment and monitoring. Case additionally discussed and seen by supervising physician
Olena
Case additionally discussed with pulmonary they reviewed the case and recommended IR consultation for possible interventional treatment. They felt that for now heparin was appropriate and they will reassess tomorrow.
<Mars Mason Jr., PA-C - Last Filed: 12/19/24 03:58>
*Pulse Oximetry
Patient hypoxic: no
*Critical Care Note
Total Time (30-74mins, 75-104mins- exclusive of procedures): Not Applicable
ED Attending Note
<Mars Mason Jr., PA-C - Last Filed: 12/19/24 03:58>
-
Portions of this chart may have been created with voice recognition software.� Occasional wrong word or��sound alike� substitutions may have occurred due to the inherent limitations of voice recognition software.
<Varun Hyatt DO - Last Filed: 12/19/24 02:18>
ED Attending Note
Patient seen and examined by attending physician: Yes
ED Attending Note:
74-year-old male with a history of DVT and pulmonary embolus presents to the emergency department with chest pain and shortness of breath for the last several days. CT scan shows bilateral pulmonary emboli. Patient was on Eliquis as recently as 9
months ago. Patient was seen in conjunction with the [facility]. I reviewed and agree with his history and treatment plan. On my independent physical exam patient is awake alert and oriented x 3, able to converse in normal sentences. No respiratory
distress observed. Lungs are clear to auscultation bilaterally no wheezing rales or rhonchi present. Heart is regular rate and rhythm.
Plan is anticoagulation, admission to the hospitalist service. PERT alert called.
Discharge Plan
Departure
Patient Disposition: Admit
Date of Disposition: 12/19/24
Time of Disposition: 02:31
Admit to doctor: Nik
Presentation/result/management discussed w/ accepting MD/DO: Hospitalist
Patient with high blood pressure during this ER visit?: No
Condition: Fair
Covid-19: Not Applicable
Discharge Problem:
Pulmonary embolism
Interventions
Interventions:
*Risk Screen - Suicide Last Done: 12/19/24 01:08
*General Assessment Last Done: 12/19/24 01:08
*Neglect/Abuse Screening Last Done: 12/19/24 01:08
*ED- Fall Risk Assessment Last Done: 12/19/24 01:08
*ED COVID-19 Vaccine History Last Done: 12/19/24 01:08
ED- Neurological Assessment Last Done: 12/19/24 01:10
ED- Cardiac Assessment Last Done: 12/19/24 01:10
ED Swallowing Screen Last Done: 12/19/24 02:00
[2024-12-19 01:19] LABS: Glucose - Point of Care 256 mg/dl (70-99)
[2024-12-19 01:24] LABS: Hematocrit 41.5 % (39.0-52.0); Hemoglobin 14.2 g/dL (13.0-18.0); Mean Corp Hgb Conc. 34.2 g/dL (33.0-37.0); Mean Corpuscular Volume 81.7 fL (80.0-94.0); Nucleated Red Blood Cells % 0 % (-); Platelet Count 182 10^3/uL (130-400); Red Cell Dist. Width 13.1 % (11.5-14.5)
[2024-12-19 01:46] LABS: ALT (SGPT) 43 U/L (0-50); AST (SGOT) 43 U/L (17-59); Albumin 4.0 g/dl (3.5-5.0); Alkaline Phosphatase 68 U/L (38-126); Blood Urea Nitrogen 26 mg/dl (9-20); Calcium 10.2 mg/dl (8.4-10.2); Carbon Dioxide 18 mmol/L (22-30); Chloride 109 mmol/L (98-107); Estimated Creatinine Clearance 78 ml/min; Glucose 260 mg/dl (70-99); Potassium 4.4 mmol/L (3.5-5.1); Sodium 139 mmol/L (135-145); Total Protein 7.4 g/dl (6.3-8.2); eGFR > 60.00
[2024-12-19 02:01] LABS: Troponin I 0.072 ng/ml
[2024-12-19] MEDS: HEPARIN 8600 UNITS IV (02:43)
[2024-12-19] MEDS: HEPARIN 25000 UNITS/250 ML IV (02:49)
[2024-12-19] MEDS: NSS 500 IV (02:52)
[2024-12-19 03:15] LABS: APTT 22.6 Sec (23.4-35.0)
--- NOTE | 2024-12-19 03:28 | HPS.HSE ---
Family Physician
-
Family Physician: Becky Ascencio-Nga Moscoso
Chief Complaint
-
SOB, Syncope
History of Present Illness
Patient is a 74y M with PMH significant for DM-II, obesity and prior DVT who presents to ED complaining of collapse at home this evening. History obtained from patient and family at the bedside. Patient states that he has felt somewhat short of
breath with activity for the past 2-3 days. He denies any chest pain or palpitations.
This evening he stood from the couch and walked into the kitchen. He began to feel extremely lightheaded and SOB. He walked back into the living room and then collapsed onto the floor. He states that he 'lowered himself' down; however, family
reports hearing a very loud crash. He denies any LOC - which, again, seems somewhat questionable.
states that patient was breathing very heavy and was clammy and diaphoretic.
They attempted to check his blood sugar; however, patient has been out of Dexcom sensors due to insurance issues and his glucometer was out of batteries (as he has not used it in some time).
gave him OJ and sugar to drink and he began to feel improved.
They presented to the ED for further evaluation and treatment.
Evaluation in the ED reveals extensive, bilateral pulmonary emboli.
Patient was diagnosed with RLE DVT in November 2023. This was following a hospitalization for pneumonia / sepsis.
Patient was maintained on Eliquis for a time following this diagnosis. He states that he spoke with PCP regarding the Eliquis and it was stopped several months ago (? exact date).
Medical History
Past Medical History
Past Medical History: Reports Other
Additional Past Medical History:
DM-II
Obesity
NAEEM
RLE DVT (11/2023)
Prostatectomy s/p Surgery and XRT
Hyperparathyroidism
Nephrolithiasis
Colon Polyps (colonoscopy / polypectomy 3-4 weeks ago @ [facility])
Past Surgical History: Reports Other
Additional Past Surgical History:
Prostatectomy
Parathyroidectomy
Lithotripsy / Stents
Social History
Tobacco: Non-smoker
Alcohol: None
Drug: None
Family History
Family History: Not pertinent
Allergies / Home Medications
Allergies reflects when Allergies were last updated in [employer].
Home Medications with original date entered in [employer]
Allergy/Medication List:
Allergies
Allergy/AdvReac Type Severity Reaction Status Date / Time
No Known Allergies Allergy Verified 07/24/24 17:13
Home Medications
insulin degludec 100 unit/mL (3 mL) subcutaneous pen (Tresiba FlexTouch U-100 insulin) 65 unit SC HS Diabetes 11/03/23
insulin aspart U-100 100 unit/mL (3 mL) subcutaneous pen (Novolog FlexPen U-100 Insulin aspart) 15 unit SC AC 11/21/23
Mounjaro 2.5 units SC WEEKLY 12/19/24
Review of Systems
-
History Source: Patient
A 12 point ROS was completed and negative except as noted: Yes
Constitutional: Reports Fatigue; Denies Fever or Chills
EENT: Denies Sore Throat
Respiratory: Reports Trouble Breathing; Denies Cough or Hemoptysis
Cardiac: Reports Diaphoresis and Syncope; Denies Chest Pain or Palpitations
Abdomen/GI: Denies Abdominal Pain, Nausea, Vomiting or Diarrhea
: Denies Dysuria, Frequency or Flank Pain
Neurological: Reports Dizzy; Denies Headache
Psych: Denies Depression or Anxiety
Physical Exam
Vital Signs
Vital Signs
Temp Pulse Resp BP Pulse Ox
97.7 F 107 16 114/77 93
12/19/24 01:08 12/19/24 03:20 12/19/24 03:15 12/19/24 03:20 12/19/24 03:20
Physical Exam
General: Other (74y M in no acute distress.)
HEENT: Moist mucous membranes and Other (Thick neck.)
Respiratory: Other (Decreased BS at bases - otherwise clear.)
Cardiac: S1/S2, Regular Rhythm and Tachycardia; No Murmur
GI: Soft, Non Tender, Non Distended and Normal Bowel Sounds
Musculoskeletal: No Clubbing, No Cyanosis and No Edema
Neuro: AO x 3
Laboratory Results
-
12/19/24 01:14
12/19/24 01:14
Laboratory Results
Total Bilirubin 1.0 mg/dl (0.2-1.3) 12/19/24 01:14
AST 43 U/L (17-59) 12/19/24 01:14
ALT 43 U/L (0-50) 12/19/24 01:14
Alkaline Phosphatase 68 U/L (38-126) 12/19/24 01:14
Troponin I 0.072 ng/ml H* 12/19/24 01:14
Impression/Plan
-
A/P: Patient is a 74y M with PMH significant for DM-II, obesity and prior DVT who presents to ED for evaluation after syncopal episode at home and is found to have extensive bilateral PEs.
Bilateral Pulmonary Emboli
- Admit to IMU for further evaluation and treatment.
- Tachycardic with heart rates around 100 bpm. No chest pain. BP borderline but stable.
- Oxygenation is acceptable on supplemental O2 (91% on RA).
- IV heparin for at least 24 hours.
- Follow vital signs, monitor for any new / worsening symptoms, etc.
- Echo in the AM.
- Follow serial troponin to peak. Check BNP.
- Pulmonary / CC evaluation for additional recommendations.
- Given recurrent episode, would likely recommend lifelong anticoagulation at this point.
DM-II
- Uncontrolled at present. ? hypoglycemic earlier this evening - though collapse / suspected syncope was likely due to PE as noted above.
- Follow glucose and cover with SSI as needed.
- Continue basal insulin at decreased dose for now.
- Check A1C.
Obesity due to excess calories
- Affects all aspects of care.
- Encourage increased exercise and healthy diet with goal of weight loss.
- Resume Mounjaro after discharge.
DVT Prophylaxis: On IV Heparin
Code Status: Full
--- NOTE | 2024-12-19 04:33 | PTCARENOTE ---
Received pt from ED via stretcher. AAOx3. On 2L NC with pulse ox at 97%; slightly dyspneic at rest, c/o SOB. Lungs are CTA but diminished. NSR/ST on monitor. Skin intact. Hep gtt running at 1900 u/hr; next PTT due at 08:50. Oriented to room.
Pt NPO at this time. IR and Pulmonary consulted. Pt in bed with call pickett in reach.
[2024-12-19] MEDS: NSS 1000 IV (05:01)
[2024-12-19 06:23] LABS: Glucose - Point of Care 129 mg/dl (70-99)
[2024-12-19 07:28] LABS: HDL Cholesterol 38 mg/dl; LDL Cholesterol, Calculated 130 mg/dl; Very Low Density Lipoprotein 13 mg/dl (0-30)
--- NOTE | 2024-12-19 08:01 | W.PN.HOSP.TC ---
Today's Communication/Plan
-
Continue IV heparin
Echocardiogram
Lower extremity venous Doppler ultrasound
Resume diet
Assessment / Plan
Assessment / Plan
Gen-AAOx3, NAD
HEENT-NC, AT, anicteric, clear oral mm
Neck-supple
CV-reg, no M, +S1/S2
Lungs-clear B/L
Abd-soft, NT, ND
Ext-no edema
Musculoskeletal-no cyanosis, clubbing
Skin-warm and dry
Neuro-grossly non-focal
Psych-calm, cooperative
Presumed syncope -suspect related to pulmonary embolism. Will check orthostatic vitals prior to discharge.
Acute bilateral pulmonary emboli -relatively stable hemodynamically. CT chest confirms distal right and left main pulmonary emboli extending into bilateral pulmonary arterial branches, predominantly lower lobes. Mild right heart strain. Continue
IV heparin.
Check bilateral lower extremity venous Doppler ultrasound.
First troponin mildly elevated, 0.072, repeat pending. BNP pending. Suspect troponin elevation due to pulmonary emboli and right heart strain. Doubt ACS.
Echocardiogram.
Pulmonary consulted.
Moving forward, recommend long-term anticoagulation as he had a previous DVT in the right leg in November 2023 after a hospitalization for sepsis. Discussed with patient.
Only history of malignancy is prostate cancer diagnosed and treated 14 years ago with prostatectomy and radiation.
History of colon polyps -resected recently at [facility]. Patient states pathology was benign.
DM 2 with hyperglycemia -check hemoglobin A1c. At home he is on Tresiba 65 units at bedtime, NovoLog 15 units AC, Mounjaro 2.5 units subcu every Sunday.
History of prostate cancer -s/p prostatectomy, radiation, 14 years ago.
Post-prostatectomy urinary incontinence
NAEEM
Nephrolithiasis
Hyperparathyroidism
Obesity due to excess calories -weight loss encouraged. We discussed importance of weight loss in light of his pulmonary embolism and importance of risk reduction for further VTE's.
Full code
Anticipated Discharge: Within 24 hours
Subjective/Interval History
-
Date of Service: December 19, 2024
Patient seen and examined. No shortness of breath or chest pain currently at rest. Denies lightheadedness currently. No complaints.
Objective Data
-
Labs:
Laboratory Results
12/19/24 12/19/24 12/19/24
01:14 02:40 06:00
WBC 14.0 H Cancelled
Hgb 14.2 Cancelled
Hct 41.5 Cancelled
Plt Count 182 Cancelled
APTT 22.6 L
Sodium 139 Cancelled
Potassium 4.4 Cancelled
Chloride 109 H Cancelled
Carbon Dioxide 18 L Cancelled
BUN 26 H Cancelled
Creatinine 1.0 Cancelled
Glucose 260 H Cancelled
Calcium 10.2 Cancelled
Total Bilirubin 1.0
AST 43
ALT 43
Alkaline Phosphatase 68
12/19/24
08:50
WBC
Hgb
Hct
Plt Count
APTT Pending
Sodium
Potassium
Chloride
Carbon Dioxide
BUN
Creatinine
Glucose
Calcium
Total Bilirubin
AST
ALT
Alkaline Phosphatase
Vital Signs:
Vital Signs
Temp Pulse Resp BP Pulse Ox
98.7 F 95 18 99/76 97
12/19/24 04:20 12/19/24 06:15 12/19/24 06:15 12/19/24 06:00 12/19/24 06:03
I&O
12/18/24 12/19/24 12/20/24
06:59 06:59 06:59
Output Total 100 / 100
Balance -100 / -100
Review of Systems
-
History Source: Patient
All other systems: Reviewed and negative
[2024-12-19 08:18] LABS: Glycohemoglobin (HgbA1c) 7.4 % (4.0-5.6)
[2024-12-19 08:48] LABS: Glucose - Point of Care 132 mg/dl (70-99)
--- NOTE | 2024-12-19 09:03 | CON.PUL ---
Consultation
Consultation Request
Date/Time Consultation Requested: 12/19/24
Date/Time Consultation Performed: 12/19/24
Performing Provider: Joshua
Reason for Consultation: PE
Medical History
-
History of Present Illness:
Patient is a 74-year-old male with previous history of diabetes, obesity prior right lower extremity DVT in 2023 presenting to ER with collapse at home day of admission. He had felt short of breath for the past 2 to 3 days, began to feel
extremely lightheaded and dizzy, collapsed on the floor. Denies any loss of consciousness, trauma. He was notably clammy and diaphoretic by family members. On arrival to ER, underwent CTA demonstrating new acute bilateral PEs. He had previously
been treated by his primary physician for right lower extremity DVT on Eliquis. This was stopped some months following that episode.
He otherwise denies any known history of lung disease, he is a non-smoker. He does admit to snoring, he feels since losing weight he has not snored as heavily. Never had sleep study.
Past Medical History
Past Medical History: Other (see list below)
Social History
Tobacco: Non-smoker
Alcohol: None
Drug: None
Allergies / Home Medications
Allergies
Allergy/AdvReac Type Severity Reaction Status Date / Time
No Known Allergies Allergy Verified 07/24/24 17:13
Home Medications
�Medication �Instructions �Recorded �Confirmed �Last Taken �Type
insulin degludec 100 unit/mL (3 65 unit SC HS Diabetes 11/03/23 12/19/24 02/24/24 History
mL) subcutaneous pen (Tresiba
FlexTouch U-100 insulin)
insulin aspart U-100 100 unit/mL 15 unit SC AC 11/21/23 12/19/24 02/25/24 History
(3 mL) subcutaneous pen (Novolog
FlexPen U-100 Insulin aspart)
Mounjaro 2.5 units SC WEEKLY 12/19/24 12/19/24 Unknown History
Review of Systems
-
History Source: Patient
All other systems: Negative unless noted
Vitals / Labs / Diagnostic Testing
Vital Signs
Temp Pulse Resp BP Pulse Ox
99.0 F 95 18 99/76 97
12/19/24 07:25 12/19/24 06:15 12/19/24 06:15 12/19/24 06:00 12/19/24 06:03
Lab Data
12/19/24 06:00
12/19/24 06:00
Laboratory Results
12/19/24
02:40
APTT 22.6 L
Diagnostic Testing:
Physical Exam
-
HEENT: Normocephalic, Anicteric and Moist Mucous Membranes
Cardiovascular: S1/S2 and Regular Rhythm
Respiratory: Clear and Non-Labored Respirations
GI: Soft, Non Distended and Non Tender
Neurology: Awake, Alert, Oriented and No Motor Deficits
Skin: Warm, Dry and Good Color
General: Comfortable and Other (NAD)
Assessment
-
Patient is a 74-year-old male with previous history of diabetes, obesity prior right lower extremity DVT in 2023 presenting to ER with collapse at home day of admission. He had felt short of breath for the past 2 to 3 days, began to feel
extremely lightheaded and dizzy, collapsed on the floor. Denies any loss of consciousness, trauma. He was notably clammy and diaphoretic by family members. On arrival to ER, underwent CTA demonstrating new acute bilateral PEs. He had previously
been treated by his primary physician for right lower extremity DVT on Eliquis. This was stopped some months following that episode. We are consulted for evaluation 12/19/24.
Acute BL PE
Presyncopal episode with falling at home, no LOC
SOB, diaphoresis
Leukocytosis, mild
Evidence of right heart strain, elevated proBNP and troponin
Conditions present prior to admission
History of DVT 11/2023, treated with Eliquis
obesity
nephrolithiasis
prostate cancer
diabetes, hemoglobin A1c 7.4
anxiety/depression
radical retropubic prostatectomy with post op xrt
parathyroidectomy
multiple stone procedures- last 05/2018- right u/l/s
Plan
He was placed on 2 L on admission
He does not have baseline use of oxygen
Wean as tolerated to off
Prior history of lung disease is NOT noted--He otherwise denies any known history of lung disease, he is a non-smoker.
He does admit to snoring, he feels since losing weight he has not snored as heavily. Never had sleep study.
CXR/CT obtained indicating bilateral PE
He has had prior history of DVT treated with Eliquis
We discussed his risk factors and plan for lifelong oral anticoagulation
He understood the plan
He is currently on IV heparin, can transition to Eliquis per team
There is evidence of right heart strain based on his elevated proBNP and troponin
ECHO ordered, results pending
He has no prior history of cardiomyopathy
Weight loss measures recommended
Obesity likely contributing to respiratory symptoms
Will need outpatient pulmonary evaluation in our office for PFTs and 6MWT
Reviewed with patient
Risk factors assessed for underlying sleep disordered breathing also noted, recommend outpatient PSG/sleep evaluation
We will leave information in chart for patient
We will follow
Diagnostic Data
Chest X-Ray: 07/24/24- 1. No displaced rib fractures. 2. No acute cardiopulmonary process.
CT Scan: CHEST 12/19/24- Bilateral pulmonary embolism with findings suspicious for mild right heart strain, as detailed above. Some left basilar opacification most likely representing subsegmental atelectasis, less likely developing pulmonary infarct.
Echo:
PFT's:
Reports and relevant images were personally reviewed.
Total time spent on this consultation __55__ minutes which includes review of history, physical exam, medications, laboratory data, personal review of imaging, extensive review of outpatient records, discussion with care team and respiratory therapy.
[2024-12-19 09:16] LABS: APTT 100.1 Sec (23.4-35.0)
[2024-12-19 09:45] LABS: Troponin I 0.227 ng/ml
[2024-12-19] MEDS: NOVOLOG FLEXPEN 5 UNITS SC ×3 (11:01→17:46)
[2024-12-19 13:19] LABS: Glucose - Point of Care 159 mg/dl (70-99)
[2024-12-19] MEDS: NOVOLOG FLEXPEN-LOW RESISTANCE 1 UNITS SC ×2 (14:14→17:47)
[2024-12-19 15:35] LABS: Troponin I 0.126 ng/ml
--- NOTE | 2024-12-19 15:49 | CM ---
Initial Assessment Completed by ASTRID Oliver
Patient lives with his in a 1 level home/ rancher with 14 steps to enter. Patient has a Rolling Walker and Single Cane, no respiratory devices. Patient has [facility] in the past and Outpatient PT.
PCP: Becky Moscoso
Pharmacy: [facility]
is concern that the patient may need oxygen because he is tired after activity as well as asking about inpatient rehab because of his weakness. ASTRID Oliver explained the process and told them that he will be monitored.
Patient has transportation home.
PLAN: Home PT/ Oxygen vs. SNF
[2024-12-19 16:35] LABS: APTT 86.7 Sec (23.4-35.0)
[2024-12-19] MEDS: ELIQUIS 10 MG PO (17:08)
[2024-12-19 17:39] LABS: Glucose - Point of Care 158 mg/dl (70-99)
--- NOTE | 2024-12-19 18:03 | PTCARENOTE ---
Weaned off o2 93-95% on RAIR. He is MYLES, sao2 not affected. IV Heparin gtt discontinued and started Eliquis dose this pm. Denies pain. OOB to chair this pm- Tolerating po diet- Novolog coverage as ordered. ECHO, US legs completed. Troponin
levels elevated and peaked at 9am draw.
[2024-12-19 22:20] LABS: Glucose - Point of Care 198 mg/dl (70-99)
[2024-12-19] MEDS: LANTUS 0.4 UNITS SC (22:42)
--- NOTE | 2024-12-20 00:44 | PTCARENOTE ---
Pt AAOx3. Pt able to make needs known. Pt requesting to stay in room on unit unless absolutely necessary. Education given about care levels. supervisor lead burning made aware, ok for Pt to stay in room for now until room is needed for higher level care
Pt. Assessment care and vitals as charted.
[2024-12-20] MEDS: ELIQUIS 10 MG PO (05:50)
[2024-12-20 05:52] VITALS: BMI 35.5
[2024-12-20 06:07] VITALS: BP 134/81
--- NOTE | 2024-12-20 07:20 | W.PN.HOSP.TC ---
Today's Communication/Plan
-
PT/OT
Discharge
Assessment / Plan
Assessment / Plan
Gen-AAOx3, NAD, obese
HEENT-NC, AT, anicteric, clear oral mm
Neck-supple
CV-reg, no M, +S1/S2
Lungs-clear B/L
Abd-soft, NT, ND
Ext-no edema
Musculoskeletal-no cyanosis, clubbing
Skin-warm and dry
Neuro-grossly non-focal
Psych-calm, cooperative
Presumed syncope -suspect related to pulmonary embolism. Orthostatic vitals negative.
Acute bilateral pulmonary emboli -relatively stable hemodynamically. CT chest confirms distal right and left main pulmonary emboli extending into bilateral pulmonary arterial branches, predominantly lower lobes. Mild right heart strain. Mild
troponin elevation, BNP 2450.
Echocardiogram shows LVEF 55 to 60%, grade 1 diastolic dysfunction, mild concentric LVH, probably mild reduced RV systolic function, no significant valvular pathology. No pericardial effusion.
Seen by pulmonary. Recommend outpatient follow-up for sleep study, PFTs, etc.
Moving forward, recommend long-term anticoagulation as he had a previous DVT in the right leg in November 2023 after a hospitalization for sepsis. Discussed with patient.
Only history of malignancy is prostate cancer diagnosed and treated 14 years ago with prostatectomy and radiation.
Bilateral lower extremity DVT -chronic nonocclusive right popliteal DVT, nonocclusive left peroneal DVT. Discussed findings with patient.
His risk factors for VTE include obesity, sedentary lifestyle, etc.
Encouraged exercise and weight loss.
Troponin elevation -suspect acute nonischemic myocardial injury due to pulmonary embolism. Troponin trended down.
History of colon polyps -resected recently at [facility] [place]. Patient states pathology was benign.
DM 2 with hyperglycemia -hemoglobin A1c 7.4%. At home he is on Tresiba 65 units at bedtime, NovoLog 15 units AC, Mounjaro 2.5 units subcu every Sunday.
In the hospital he is on Lantus 40 units at bedtime, NovoLog 5 units AC, low resistance NovoLog scale.
History of prostate cancer -s/p prostatectomy, radiation, 14 years ago.
Post-prostatectomy urinary incontinence
NAEEM
Nephrolithiasis
Hyperparathyroidism
Obesity due to excess calories -weight loss encouraged. We discussed importance of weight loss in light of his pulmonary embolism and importance of risk reduction for further VTE's.
Full code
PT/OT
Dispo -anticipate discharge home today. Outpatient follow-up with PCP and pulmonary. Discussed with nursing.
35 minutes spent in discharge process.
Anticipated Discharge: Today
Subjective/Interval History
-
Date of Service: December 20, 2024
Patient seen and examined. No complaints.
Objective Data
-
Vital Signs:
Vital Signs
Temp Pulse Resp BP Pulse Ox
98.8 F 80 18 114/67 96
12/20/24 03:47 12/20/24 00:00 12/20/24 00:00 12/19/24 22:44 12/19/24 21:37
I&O
12/19/24 12/20/24 12/21/24
06:59 06:59 06:59
Intake Total 260 / 260
Output Total 100 / 100 1200 / 1200
Balance -100 / -100 -940 / -940
Review of Systems
-
History Source: Patient
All other systems: Reviewed and negative
--- NOTE | 2024-12-20 07:30 | W.DS.TRANS ---
DC Summary - Backend Developer
-
Discharge Instructions:
Discharge Diagnosis/Procedures Acute pulmonary emboli, acute lower extremity
DVT
Diet Diabetic, Carb Controlled
Activity As tolerated
Driving Restrictions As prior to admission
Bathing Restrictions None
Instructions:
Stand-Alone Forms:
Changes to Home Medications: No
Discharge Medications:
DC Medications w/original date entered in [employer]
insulin degludec 100 unit/mL (3 mL) subcutaneous pen (Tresiba FlexTouch U-100 insulin) 65 unit SC HS Diabetes 11/03/23
insulin aspart U-100 100 unit/mL (3 mL) subcutaneous pen (Novolog FlexPen U-100 Insulin aspart) 15 unit SC AC Diabetes 11/21/23
Mounjaro 2.5 units SC WEEKLY Diabetes 12/19/24
apixaban 5 mg tablet (Eliquis) 5 mg PO BID #70 tabs 12/20/24
Home Medication Changes
Pending Results: No
[2024-12-20] MEDS: NOVOLOG FLEXPEN 5 UNITS SC (08:15)
[2024-12-20] MEDS: NOVOLOG FLEXPEN-LOW RESISTANCE 1 UNITS SC (08:15)
[2024-12-20 08:18] VITALS: BP 144/104
[2024-12-20 08:24] LABS: Glucose - Point of Care 191 mg/dl (70-99)
--- NOTE | 2024-12-20 08:35 | W.PN.PUL3 ---
Today's Communication / Plan
-
- Transition to Eliquis, needs lifelong anticoagulation
- Scheduled for discharge, outpatient follow-up with pulmonary clinic
Assessment
-
Patient is a 74-year-old male with previous history of diabetes, obesity prior right lower extremity DVT in 2023 presenting to ER with collapse at home day of admission. He had felt short of breath for the past 2 to 3 days, began to feel
extremely lightheaded and dizzy, collapsed on the floor. Denies any loss of consciousness, trauma. He was notably clammy and diaphoretic by family members. On arrival to ER, underwent CTA demonstrating new acute bilateral PEs. He had previously
been treated by his primary physician for right lower extremity DVT on Eliquis. This was stopped some months following that episode. We are consulted for evaluation 12/19/24.
Acute BL PE
Presyncopal episode with falling at home, no LOC
SOB, diaphoresis
Leukocytosis, mild
Evidence of right heart strain, elevated proBNP and troponin
Conditions present prior to admission
History of DVT 11/2023, treated with Eliquis
obesity
nephrolithiasis
prostate cancer
diabetes, hemoglobin A1c 7.4
anxiety/depression
radical retropubic prostatectomy with post op xrt
parathyroidectomy
multiple stone procedures- last 05/2018- right u/l/s
Plan
He was placed on 2 L on admission
He does not have baseline use of oxygen
Wean as tolerated to off
Prior history of lung disease is NOT noted--He otherwise denies any known history of lung disease, he is a non-smoker.
He does admit to snoring, he feels since losing weight he has not snored as heavily. Never had sleep study.
CXR/CT obtained indicating bilateral PE
He has had prior history of DVT treated with Eliquis
We discussed his risk factors and plan for lifelong oral anticoagulation
He understood the plan
He is currently on IV heparin, can transition to Eliquis per team
There is evidence of right heart strain based on his elevated proBNP and troponin
ECHO ordered, results pending
He has no prior history of cardiomyopathy
Weight loss measures recommended
Obesity likely contributing to respiratory symptoms
Will need outpatient pulmonary evaluation in our office for PFTs and 6MWT
Reviewed with patient
Risk factors assessed for underlying sleep disordered breathing also noted, recommend outpatient PSG/sleep evaluation
We will leave information in chart for patient
We will follow
Diagnostic Data
Chest X-Ray: 07/24/24- 1. No displaced rib fractures. 2. No acute cardiopulmonary process.
CT Scan: CHEST 12/19/24- Bilateral pulmonary embolism with findings suspicious for mild right heart strain, as detailed above. Some left basilar opacification most likely representing subsegmental atelectasis, less likely developing pulmonary infarct.
Echo:
PFT's:
Reports and relevant images were personally reviewed.
Total time spent on this consultation __45__ minutes which includes review of history, physical exam, medications, laboratory data, personal review of imaging, extensive review of outpatient records, discussion with care team and respiratory therapy.
Subjective Data
-
Date of Service:
Date of Service: December 20, 2024
Subjective:
Patient comfortably lying in bed in no acute distress.
Review of Systems
Genitourinary: Other (All 14 systems reviewed and negative except as stated above in the history of present illness.)
Objective Data
Data Reviewed
Vital Signs / I&O / Oxygen:
Vital Signs
Temp Pulse Resp BP Pulse Ox
98.8 F 76 19 134/81 96
12/20/24 03:47 12/20/24 06:07 12/20/24 06:07 12/20/24 06:07 12/19/24 21:37
Intake and Output
12/19/24 12/20/24 12/21/24
06:59 06:59 06:59
Intake Total 260 / 260
Output Total 100 / 100 1200 / 1200
Balance -100 / -100 -940 / -940
SaO2 96
Nasal Cannula flow liters per 2
minute
Physical Exam
General: Comfortable
HEENT: Normocephalic
Cardiovascular: S1-S2
Respiratory: Clear
GI: Soft and Non Distended
Neurology: Awake and Alert
Labs/Micro/Reports
Lab Data
12/19/24 06:00
12/19/24 06:00
Laboratory Results
12/19/24 12/19/24 12/19/24
08:57 15:00 15:53
APTT 100.1 H Cancelled 86.7 H
[2024-12-20 08:46] VITALS: BP 121/81
[2024-12-20 09:09] VITALS: BP 121/81; PULSE 83
[2024-12-20 09:10] VITALS: BP 121/81; PULSE 119; PULSE 83
--- NOTE | 2024-12-20 09:13 | PTCARENOTE ---
Patient AOx3. On RA with SpO2 greater than 92%. Slight MYLES. NSR on monitor. BP stable. Standby assist when OOB. Stress incontinence. Utilizes own briefs. Call pickett within reach, bed in lowest position, and bed of wheels locked.
--- NOTE | 2024-12-20 11:01 | PTCARENOTE ---
Reviewed D/C paperwork with patient. He verbalized understanding. IV's removed. Patient left in in wheelchair by transport.
== END 2024-12-20 11:10 | disposition home or self-care (01) | DRG 176 ==
LOC: IMU 03:52
PROVIDERS: Physician Assistant; ADMITTING PHYSICIAN Hospitalist; ATTENDING PHYSICIAN Hospitalist; EMERGENCY PHYSICIAN Student in an Organized Health Care Education/Training Program; FAMILY PHYSICIAN Internal Medicine; OTHER PHYSICIAN Internal Medicine
DX: I26.99 Other pulmonary embolism without acute cor pulmonale (principal); I5A Non-ischemic myocardial injury (non-traumatic); I82.452 Acute embolism and thrombosis of left peroneal vein; I82.531 Chronic embolism and thrombosis of right popliteal vein; E11.65 Type 2 diabetes mellitus with hyperglycemia; F41.9 Anxiety disorder, unspecified; G47.33 Obstructive sleep apnea (adult) (pediatric); H40.9 Unspecified glaucoma; I95.9 Hypotension, unspecified; F32.A Depression, unspecified; R09.02 Hypoxemia; E21.3 Hyperparathyroidism, unspecified; E66.09 Other obesity due to excess calories; W19.XXXA Unspecified fall, initial encounter; Y93.9 Activity, unspecified; Y92.009 Unspecified place in unspecified non-institutional (private) residence as the place of occurrence of the external cause; Z96.652 Presence of left artificial knee joint; Z68.35 Body mass index [BMI] 35.0-35.9, adult; Z86.0100 Personal history of colon polyps, unspecified; Z79.01 Long term (current) use of anticoagulants; Z86.718 Personal history of other venous thrombosis and embolism; Z85.46 Personal history of malignant neoplasm of prostate; Z87.442 Personal history of urinary calculi; Z87.01 Personal history of pneumonia (recurrent); Z87.440 Personal history of urinary (tract) infections; Z92.3 Personal history of irradiation; Z79.4 Long term (current) use of insulin; Z79.85 Long-term (current) use of injectable non-insulin antidiabetic drugs
CPT/HCPCS: 71275; 80053; 80061; 82962; 83036; 83880; 84443; 84484; 85025; 85730; 93005; 93306; 93970; 96365; 97162; 97165; 99285; Q9967

== ENCOUNTER 2025-02-17 13:25 | Emergency (ER) | payer BC, MEDICARE, SELFPAY ==
[2025-02-17] VITALS (9 sets, daily range): BP systolic 102–159; BP diastolic 65–85; BMI 35.6
[2025-02-17 13:38] LABS: Glucose - Point of Care 148 mg/dl (70-99)
[2025-02-17 14:29] LABS: Hematocrit 42.6 % (39.0-52.0); Hemoglobin 14.5 g/dL (13.0-18.0); Mean Corp Hgb Conc. 34.0 g/dL (33.0-37.0); Mean Corpuscular Volume 82.6 fL (80.0-94.0); Nucleated Red Blood Cells % 0 % (-); Platelet Count 222 10^3/uL (130-400); Red Cell Dist. Width 13.5 % (11.5-14.5)
[2025-02-17 14:33] LABS: INR 1.17; PT 15.2 Sec (11.4-14.6)
[2025-02-17 14:34] LABS: APTT 27.1 Sec (23.4-35.0)
--- NOTE | 2025-02-17 14:36 | ED.CVA ---
History of Present Illness
General
Chief Complaint: CVA/TIA Symptoms
Source: patient
Exam Limitations: none
Time Seen by Provider: 02/17/25 14:14
Onset of Stroke Symptoms
Onset of symptoms known: Yes
Date of onset of symptoms: 02/16/25
Time pt last seen normal is known: Yes
Date last time pt seen normal: 02/16/25
History of Present Illness
History of Present Illness:
See MDM
Past History
Past History
ED Past Medical History: Cancer (prostate cancer with radiation therapy;), NIDDM, Psychiatric (Anxiety, ) and Other (Multiple kidney stones, glaucoma, obstructive sleep apnea, Back pain, PNA, UTi, )
ED Past Surgical History: Orthopedic (Left knee replacement), Tonsilectomy (adenoids, ), Urological (Prostatectomy) and Other (Para Thyroid removal, )
Social History
Tobacco: Non-smoker
Alcohol: None
Drug: None
Personal:
Living: with family
Employment: Employed
Family History
Family History: Hypertension
Phy Exam
Physical Exam
Physical Exam:
See MDM
Scores
NIH Stroke Score
Level of Consciousness: 0 - Alert
LOC Questions: 0-Answers both correctly
LOC Commands: 0-Performs both correctly
Best Horizontal Gaze: 0-Normal
Visual [place]: 0=Normal, no visual loss
Facial Palsy: 0=Normal, symmetrical
Motor - Right Arm: 0=No drift 10 seconds
Motor - Left Arm: 0=No drift 10 seconds
Motor - Right Le-No drift 5 seconds
Motor - Left Le-No drift 5 seconds
Limb Ataxia: 0-Absent
Sensation: 0-Normal
Best Language: 0-No aphasia
Dysarthria: 0-Normal
Extinction and Inattention: 0-No abnormality
NIH Total Score:: 0
Course
Orders/Labs/Results
Orders:
Orders
02/17/25 14:08
Electrocardiogram (*1) Urgent
Reason for Study: Other
Other Reason for Exam: Possible Stroke
Cardiac Monitoring- Treatment ONCE
EKG- Treatment ONCE
IV Insert/Care/Rem.- Treatment PRN
Vital Signs As Directed
Frequency: Other
Weight As Directed
Frequency: Once
Comment: ZERO STRETCHER SCALE FOR ACCURATE WEIGHT
02/17/25 14:10
Complete Blood Count/With Diff Urgent
Comprehensive Metabolic Panel Urgent
PTT Urgent
Prothrombin Time Urgent
Troponin I Urgent
02/17/25 14:41
Shoulder, Left, Trauma CR [CR Shoulder, Trauma - Left] Urgent
Comment:
Reason For Exam: fall, left shoulder pain
02/17/25 17:03
CT Head W/o Iv Contrast Urgent
Comment:
Reason For Exam: left arm tingling
Abnormal Lab Results
02/17/25 02/17/25
13:37 14:10
MPV 10.8 H fL
(7.4-10.4)
Lymphocytes % 19.7 L %
(20.5-51.1)
PT 15.2 H Sec
(11.4-14.6)
Glucose 158 H mg/dl
(70-99)
POC Glucose 148 H mg/dl
(70-99)
02/17/25 14:10
02/17/25 14:10
Vital Signs
Initial and Last Documented VS:
Initial Vital Signs
Temp Pulse Resp BP Pulse Ox
97.8 F 70 16 143/85 98
02/17/25 13:30 02/17/25 13:30 02/17/25 13:30 02/17/25 13:30 02/17/25 13:30
Last Documented Vital Signs
Temp Pulse Resp BP Pulse Ox
97.8 F 71 18 159/85 97
02/17/25 13:30 02/17/25 20:10 02/17/25 20:10 02/17/25 20:09 02/17/25 20:10
MDM/Problems Addressed
Differential Diagnosis Includes:
Note:
CHIEF COMPLAINT(S)
Recurrent falls with transient slurred speech and numbness in the hands.
HISTORY OF PRESENT ILLNESS
The patient is a 74-year-old male with a medical history of deep vein thrombosis requiring treatment with apixaban (Eliquis), presenting with recurrent falls and transient episodes of numbness in the hands. These symptoms commenced last night around
9:00 PM, with a reported fall occurring at 3:30 AM today. The patient describes the numbness as a 'pins and needles' sensation, which resolved within five minutes. The patient reports no history of stroke or atrial fibrillation, and states that
apixaban therapy was initiated due to deep vein thrombosis in the left leg. The patient noted dizziness shakila to lightheadedness but does not describe overt vertigo. There is a history of left knee replacement and frequent use of a chair at home. The
symptoms have prompted investigation to rule out a possible cerebrovascular accident.
PAST MEDICAL AND SURGICAL HISTORY
- Deep vein thrombosis
- Left knee replacement
CHRONIC MEDICAL CONDITIONS SIGNIFICANTLY AFFECTING CARE
Chronic conditions affecting care include the patient�s use of apixaban for a prior deep vein thrombosis, and immobility secondary to orthopedic issues.
PHYSICAL EXAM
General: Alert, no acute distress.
Skin: Warm, dry.
Head: Normocephalic, atraumatic
Neck: Appears supple, trachea midline.
Eyes, Ears, Nose, Mouth, and Throat: Moist mucous membranes
Cardiovascular: No signs of cyanosis. Regular rate and rhythm
Respiratory: Respirations are non-labored.
Abdomen: Non-distended
Musculoskeletal: No deformities. Mild tenderness to left anterior shoulder
Neurological: No focal neurological deficit observed.
Psychiatric: Cooperative, appropriate mood and affect.
DIFFERENTIAL DIAGNOSIS
The Differential Diagnosis includes, in no particular order and is not limited to:
- Transient ischemic attack
- Stroke (Ischemic or Hemorrhagic)
- Labyrinthitis or Vestibular Disorders
- Electrolyte Imbalance
- Carotid artery stenosis
- Peripheral neuropathy
- Orthopedic issues related to previous surgeries
- Medication side effects (Apixaban)
- Benign Paroxysmal Positional Vertigo
- Cardiovascular Syncope
SUMMARY OF ENCOUNTER
The patient was seen in the emergency department due to the sudden onset of transient numbness in the hands and about slurred speech, coinciding with recurrent falls. Concerns were raised about a possible cerebrovascular accident, particularly a
mild stroke or transient ischemic attack. Neuroimaging and consultations were preliminarily planned to evaluate the possible need for cholesterol management and to rule out carotid artery stenosis.
ASSESSMENT
The clinical presentation raises suspicion for a mild cerebrovascular event given the transient symptoms and past medical history, although definitive evidence is yet to be discerned. Consideration of possible carotid artery stenosis and the
evaluation of anticoagulation efficacy are primary concerns.
PLAN
- Comprehensive work-up including CT scan of the head and potential MRI.
- Blood work to check electrolyte balance and other potential causes of neurological symptoms.
- Discussion with a neurologist regarding possible admission for further observation and optimization of stroke prevention strategies.
- Initiation of cholesterol-lowering therapy pending cholesterol level results.
DIAGNOSIS
- Suspected Transient Ischemic Attack (TIA) [ICD-10: G45.9]
- Possible Carotid Artery Stenosis
- Deep Vein Thrombosis [ICD-10: I80.29]
- Elevated Risk of Stroke due to Anticoagulation Therapy and Prior Thrombotic Event
EKG
My independent EKG interpretation is:
- Rhythm: Sinus rhythm with first degree block
- Heart Rate: 66 beats per minute
- [place]: Normal
- Intervals: Within normal limits
- ST Segment: No elevation
SUMMARY OF ENCOUNTER
The patient presented with left arm tingling and a sensation of heaviness. The NIH Stroke Scale was evaluated and technically scored zero. A CT scan was performed to rule out evidence of a mass or bleed, considering the patient is on apixaban. The
results were negative, and the patient reported feeling better. The possibility of a transient ischemic attack (TIA) was discussed.
PLAN
The patient was offered admission for a neurology evaluation and a likely MRI. However, he declined the MRI due to claustrophobia. A follow-up conversation with his primary care physician in an outpatient setting was discussed for further evaluation.
INDEPENDENT REVIEW OF LABS AND INTERPRETATION OF TESTS
My independent CT scan interpretation is negative for mass or bleed.
MEDICATION RECONCILIATION
Apixaban (Eliquis) mentioned for anticoagulation therapy.
MEDICAL DECISION MAKING
-Complexity of Data Reviewed: Chronic conditions affecting care include deep vein thrombosis and use of apixaban. Differential diagnosis includes transient ischemic attack, stroke, labyrinthitis, electrolyte imbalance, carotid artery stenosis,
peripheral neuropathy, orthopedic issues, medication side effects, and cardiovascular syncope.
-Data:
Category [address] results showing no mass or bleed present.
-Risk:
Consideration of Admission/Observation: Escalation of care, including admission/observation, was considered given the complexity and risk of the patients presenting complaint, exam findings, and/or their underlying comorbidities. However, ultimately
the patient is safe for outpatient management with close follow-up. Reasoning: Work-up was reassuring, did not reveal any acute life/organ-threatening processes, patients symptoms well controlled upon reevaluation, reexamination is reassuring,
vitals are stable, patient agreeable with discharge, reliable for follow-up.
DIAGNOSIS
Suspected Transient Ischemic Attack (TIA) [ICD-10: G45.9]
*Pulse Oximetry
SaO2: 98
Oxygen Mode of Delivery: Room air
Patient hypoxic: no
*Critical Care Note
Total Time (30-74mins, 75-104mins- exclusive of procedures): Not Applicable
ED Attending Note
-
Portions of this chart may have been created with voice recognition software.� Occasional wrong word or��sound alike� substitutions may have occurred due to the inherent limitations of voice recognition software.
Discharge Plan
Departure
Patient Disposition: Home (Routine Discharge)
Date of Disposition: 02/17/25
Time of Disposition: 20:47
Patient with high blood pressure during this ER visit?: Yes
Discharge Problem:
Paresthesia
Instructions: Paresthesia (DC), BLOOD PRESSURE
Prescriptions:
No Action
insulin degludec [Tresiba FlexTouch U-100] 100 unit/mL (3 mL) Insulin Pen
45 unit SC HS
Mounjaro
5 units SC WEEKLY
Eliquis 5 mg tablet
5 mg PO BID Qty: 70 0RF
Rx Instructions:
2 tabs (10mg) Twice daily for 12 doses, then 1 tab (5mg) Twice daily.
Referrals:
Becky Moscoso MD [Family Provider]
Activity Restrictions/Additional Instructions:
Please return for any worsening symptoms.
You may return at any time if you have further concerns.
Please follow up with your doctor at the first available appointment, preferably this week.
Please discuss the case with your doctor and discuss further workup such as MRI.
Thank you for choosing [facility].
Interventions
Interventions:
*Risk Screen - Suicide Last Done: 02/17/25 13:30
*General Assessment Last Done: 02/17/25 13:48
*Neglect/Abuse Screening Last Done: 02/17/25 13:30
*ED- Fall Risk Assessment Last Done: 02/17/25 13:48
*ED COVID-19 Vaccine History Last Done: 02/17/25 13:48
*ED Influenza Vaccine History Last Done: 02/17/25 13:48
ED- Cardiac Assessment Last Done: 02/17/25 13:58
ED- Neurological Assessment Last Done: 02/17/25 19:07
ED- Pulmonary Assessment Last Done: 02/17/25 13:58
ED Swallowing Screen Last Done: 02/17/25 13:52
Discharge Date and Time
Print Language: [id number]
[2025-02-17 14:53] LABS: ALT (SGPT) 25 U/L (0-50); AST (SGOT) 21 U/L (17-59); Albumin 4.1 g/dl (3.5-5.0); Alkaline Phosphatase 65 U/L (38-126); Blood Urea Nitrogen 14 mg/dl (9-20); Calcium 9.9 mg/dl (8.4-10.2); Carbon Dioxide 26 mmol/L (22-30); Chloride 104 mmol/L (98-107); Estimated Creatinine Clearance 109 ml/min; Glucose 158 mg/dl (70-99); Potassium 4.2 mmol/L (3.5-5.1); Sodium 138 mmol/L (135-145); Total Protein 7.1 g/dl (6.3-8.2); eGFR > 60.00
[2025-02-17 15:12] LABS: Troponin I 0.015 ng/ml
== END 2025-02-17 21:25 | disposition home or self-care (01) ==
LOC: EMR 13:25
PROVIDERS: EMERGENCY PHYSICIAN Student in an Organized Health Care Education/Training Program; FAMILY PHYSICIAN Internal Medicine
DX: R20.2 Paresthesia of skin (principal); E11.9 Type 2 diabetes mellitus without complications; G47.33 Obstructive sleep apnea (adult) (pediatric); Z85.46 Personal history of malignant neoplasm of prostate; Z86.718 Personal history of other venous thrombosis and embolism
CPT/HCPCS: 99285; 70450; 73030; 80053; 82962; 84484; 85025; 85610; 85730; 93005

== ENCOUNTER → 2025-02-19 12:00 | Outpatient (REF) | payer BC, SELFPAY | LOC: DHSLP 12:00 | PROVIDERS: ATTENDING PHYSICIAN Internal Medicine; FAMILY PHYSICIAN Internal Medicine | DX: G47.33 Obstructive sleep apnea (adult) (pediatric) (principal) | CPT/HCPCS: 95800 ==